=== PATIENT | female | born 1985 | race Caucasian/White ===

== ENCOUNTER 2019-03-05 21:29 | Emergency (ER) | payer MEDICAID, SELFPAY ==
[2019-03-05 21:30] VITALS: BP 132/82; PULSE 105; RESP 22; TEMP 37.3; O2SAT 98; BMI 43.4
--- NOTE | 2019-03-05 21:41 | EKG12_ITS ---
Test Reason : CP Blood Pressure : / mmHG Vent. Rate : 103 BPM Atrial Rate : 103 BPM P-R Int : 150 ms QRS Dur : 090 ms QT Int : 344 ms P-R-T Axes : 022 -01 023 degrees QTc Int : 450 ms Sinus tachycardia Low voltage QRS Borderline ECG Confirmed by JANESSA LUO MD ([id number]), news videotape editor CRISTINA GREEN ([id number]) on 03/08/2019 3:32:32 PM Referred By: TEODORA Confirmed By:JANESSA LUO MD
--- NOTE | 2019-03-05 22:17 | ED.VIS.GEN ---
History of Present Illness Chief Complaint: Chest Pain Narrative: Patient is a 33-year-old female who presents with cough and shortness of breath. She has had about 1-1/2 weeks of productive cough. She complains of mild associated rhinorrhea. She began to feel short of breath last night and also is having sharp right-sided chest pain. This is worse with coughing or inspiration. No fever. No vomiting or diarrhea. No sore throat or headache. She is on Suboxone but denies any other medical history. Past Medical History - Allergies and Home Meds Allergies/Adverse Reactions: Allergies codeine Allergy (Verified 03/05/19 21:30) Rash ibuprofen Allergy (Verified 03/05/19 21:30) Rash naproxen Allergy (Verified 03/05/19 21:30) Hives Penicillins Allergy (Verified 03/05/19 21:30) Hives Primary Care Physician: Merissa Choi MD [Primary Care Provider] - Past Medical History: - - Noncontributory Smoking Status: Current every day smoker Review of Systems All systems negative except as indicated General: Denies: Fever Eyes: Denies: Visual changes - bilaterally ENT: Denies: Bilateral ear pain Cardiovascular: Reports: Chest pain Respiratory: Reports: Dyspnea, Cough Gastrointestinal: Denies: Abdominal pain, Nausea, Vomiting, Diarrhea Musculoskeletal: Denies: Myalgias, Arthralgias Skin: Denies: Rash Neurological: Denies: Headache Allergy: Denies: Uticaria Physical Exam Vital Signs/Narrative: Vital Signs Temp Pulse Resp BP Pulse Ox 03/05/19 21:30 99.1 F 105 H 22 H 132/82 H 98 Inital Vital Signs reviewed: Yes General: Well nourished, Well developed Head: Normocephalic Eyes: EOMI ENT: Moist mucous membranes Neck: Supple Cardiovascular: Regular rate, Regular rhythm Respiratory: No distress, Wheezing. Negative for: Rales, Rhonchi Abdomen: Soft, Nontender Back: Nontender Extremities: Nontender Skin: Normal color Neurological: Alert Psychological: Normal affect Diagnostic/Tx/Re-eval - Medical Decision Making Although on initial vitals she was slightly tachycardic at 103 with a respiratory rate of 22 at the time of my evaluation in the room heart rate was mid 90s with a respiratory rate of 16-18. She is in no distress. She was given albuterol and Atrovent aerosols. Given her wheezing I discussed oral steroids which she refused. Two-view chest x-ray on my review shows no acute process, no focal infiltrate, radiology read pending. Patient is improved after aerosols. She was advised on supportive care. She understands to return for new or worsening symptoms. She was discharged home. ED Disposition - Plan for ED Patient: Disposition: Home or Assisted Living Diagnosis: Bronchitis Instructions: BRONCHITIS with Wheezing (Adult) Referrals: Merissa Choi MD [Primary Care Provider] -
[2019-03-05 22:27] VITALS: PULSE 100; RESP 20
[2019-03-05] MEDS: Ipratropium/Albuterol Sulfate 3 ML AMPUL.NEB INHALATION (22:27)
[2019-03-05] MEDS: Albuterol 2.5 MG/3 ML VIAL.NEB. INHALATION (22:40)
--- NOTE | 2019-03-05 23:32 | RAD_ITS ---
ACR Level 3 findings have been noted. An addendum which confirms receipt of the report will follow. HISTORY: COUGH FOR A COUPLE WEEKSSOB AND CHEST PAIN EXAM: XR Chest 2 Views: COMPARISON: None FINDINGS: # of images incl. paperwork: 2 The junction of the left ventricular apex and the left hemidiaphragm at the apex of the left hemidiaphragm is indistinct. There is some airspace disease perhaps posterior to the left hemidiaphragm on the lateral image.. Heart is not enlarged. No acute osseous pathology perceived. Pulmonary vascularity is distinct. No effusions. RAD/Chest PA and Lateral IMPRESSION: Possible left lower lobe airspace disease such as pneumonia. at 0054 Reported and signed by: Joni Romero MD Electronically Signed: Joni Romero MD at 0:53 EST Tel , Service support ,
--- NOTE | 2019-03-06 02:50 | ED.RN ---
left message with patient at this time to return phone call about possible concern for PNA on chest xray. Dr. Rosas to call in scrip to pharm if patient wanted
== END 2019-03-06 00:51 | disposition home or self-care (01) ==
PROVIDERS: Emergency Provider Emergency Medicine; Family Provider Internal Medicine; PCP Internal Medicine
DX: J40 Bronchitis, not specified as acute or chronic (principal); F17.200 Nicotine dependence, unspecified, uncomplicated
CPT/HCPCS: 71046; 87804; 93005; 94640; 99281; J7030

== ENCOUNTER 2019-03-10 18:56 | Emergency (ER) | payer MEDICAID, SELFPAY ==
[2019-03-10 18:57] VITALS: BP 144/108; PULSE 70; RESP 20; TEMP 36.7; O2SAT 93; BMI 51.0
[2019-03-10 19:46] VITALS: RESP 20
--- NOTE | 2019-03-10 20:27 | CT_ITS ---
STUDY: CT ABDOMEN AND PELVIS WITH CONTRAST REASON FOR EXAM: Female, 33 years old. ABDOMEN PAIN AND DARK TARRY STOOLS,RECENT PNEUMONIA -- HX:HTN-TAKES NO MEDS,CHOLECYSTECTOMY,HYSTERECTOMY RADIATION DOSAGE (If Supplied By Facility): CTDIvol = ( 22.07 ) mGy, DLP = ( 1266.40 ) mGycm TECHNIQUE: Transaxial images were obtained from the dome of the diaphragm to the symphysis pubis without oral contrast. IV 100mL Isovue-300 was administered. Sagittal and coronal images were reconstructed. Individualized dose optimization techniques were used for this CT. COMPARISON: September 14, 2009 FINDINGS: There is mild left lower lobe atelectasis or infiltrate.. The visualized portions of the heart are within normal limits. Normal liver. Gallbladder not visualized which may be consistent with cholecystectomy.. Normal spleen. Normal pancreas. Normal bilateral adrenal glands. Normal right kidney. Normal left kidney. Normal visualized stomach. Normal small intestine. There is diffuse fecal retention seen within the colon. There is mildly increased attenuation of the intraluminal content of the distal descending colon and rectum possibly representing intraluminal hemorrhage or possibly related to ingested radiopaque substance. The appendix is visualized and appears normal. Normal abdominal aorta. Normal inferior vena cava. Normal retroperitoneum. Normal urinary bladder. Uterus not visualized consistent with prior hysterectomy. Normal abdominal wall. Lumbar spine demonstrates degenerative change L5-S1. CT/Abdomen/Pelvis W IV Cont ONLY IMPRESSION: Mild left lower lobe infiltrate. Diffuse fecal retention within the colon. Hyperattenuated intraluminal material within the distal descending colon and rectum possibly representing intraluminal hemorrhage. Radionuclide tagged to red blood cell study would be helpful for further evaluation if clinically indicated Status post cholecystectomy and hysterectomy Electronically Signed: Marcos Delcid MD at 21:59 EST , Service support ,
[2019-03-10 21:17] LABS: Absolute Lymphocyte Count 2.91 X10^3/uL (0.83-4.51); Absolute Neutrophil Count 3.4 X10^3/uL (2.0-7.7); Basophil# 0.04 X10^3/uL; Basophil% 0.5 % (0-1); Eosinophil# 0.66 X10^3/uL; Eosinophils% 8.7 % (0-5); Hematocrit 39.4 % (37-47); Hemoglobin 13.2 g/dL (12.0-15.0); Lymphocyte # 2.91 X10^3/ul (4.0); Lymphocyte % 38.4 % (19-41); Mean Corp Hgb Conc 33.5 g/dL (32-36); Mean Corpuscular Hgb 30.2 pg (27.0-32.0); Mean Corpuscular Volume 90.2 fL (81-99); Mean Platelet Vol. 9.5 fl (6.2-12.0); Monocyte# 0.53 X10^3/uL; NRBC Flagged by Analyzer 0 % (0-5); Neutrophil # 3.42 X10^3/uL (2.7-7.7); Neutrophil % 45.1 % (47-70); Platelet Count 268 K/mm3 (150-450); RBC Distribution Width CV 11.6 % (11.6-14.6); RBC Distribution Width SD 37.8 fl (35.1-43.9); Red Blood Count 4.37 M/mm3 (4.2-5.4); White Blood Count 7.6 K/mm3 (4.4-11.0)
[2019-03-10] MEDS: Ondansetron 4 MG/2 ML Vial IV (21:19)
[2019-03-10] MEDS: 0.9% Normal Saline 1,000 ML 1000 ML IV (21:19)
[2019-03-10 21:33] VITALS: BP 121/95; PULSE 62; RESP 16; TEMP 36.5; O2SAT 94
--- NOTE | 2019-03-10 21:35 | RAD_ITS ---
STUDY: X-RAY CHEST REASON FOR EXAM: Female, 33 years old. patient complains of cough TECHNIQUE: PA and lateral COMPARISON: March 05, 2019 FINDINGS: There is retrocardiac density in left lower lobe which may be consistent with atelectasis or infiltrate.. There is no demonstrated pleural abnormality. Normal size heart. Normal mediastinum and misti. Normal visualized pulmonary arteries. Normal visualized aortic arch and descending thoracic aorta. Normal visualized thoracic spine. Normal visualized ribs, clavicles, and shoulders. There is no demonstrated abnormality of the visualized soft tissue structures of the upper abdomen. There is improved aeration of left lower lobe since prior study. RAD/Chest PA and Lateral IMPRESSION: Persistent mild left lower lobe atelectasis or infiltrate with interval improvement since prior study Electronically Signed: Marcos Delcid MD at 21:53 EST , Service support ,
[2019-03-10 21:42] LABS: ALB/GLOB Ratio 0.7 RATIO (0.9-2.4); AST(SGOT) 60 U/L (15-37); Alanine Aminotransfer ALT/SGPT 35 U/L (13-56); Albumin, Serum 3.2 g/dL (3.2-5.0); Alkaline Phosphatase 81 U/L (45-117); Anion Gap 5 (5-15); BUN 11 mg/dL (7-18); BUN/Creat Ratio 13.6 RATIO (10-20); Calcium,Total 8.7 mg/dL (8.5-10.1); Chloride 110 mmol/L (98-107); Creatinine, Serum 0.81 mg/dL (0.55-1.02); EST Glomerular Filtration Rate 85 mL/min (>60); Est Glom Filt Rate - Afr Amer 103 mL/min (>60); Estimated Creatinine Clearance 73.15 ml/min; Globulin 4.3 g/dL (2.2-4.2); Glucose 89 mg/dL (74-106); Lipase 40 U/L (73-393); Protein, Total 7.5 g/dL (6.4-8.2); Sodium Level 140 mmol/L (136-145)
[2019-03-10 22:07] LABS: Bacteria 0 SEEN /hpf (None Seen); Mucous, Urine 0 SEEN /hpf (<or=2+); Red Blood Cells-Urine 0 SEEN /hpf (0-5); White Blood Cells 0 SEEN /hpf (0-5)
[2019-03-10 22:09] LABS: Color, Urine Yellow (Yellow); Glucose, Dipstick Normal (Normal); Ketone-Dipstick Negative (Negative); Leukocyte Esterase-Dipstick Negative /ul (Negative); Nitrite-Dipstick Negative (Negative); Occult Blood-Urine 10 /ul (Negative); Protein-Dipstick 15 mg/dl (Negative); Specific Gravity, Urine 1.015 (1.002-1.030); Urine Bilirubin Dipstick Negative (Negative); Urine Clarity Sl. Cloudy (Clear); Urine Urobilinogen Normal (Normal)
[2019-03-10] MEDS: Dicyclomine 10 MG Capsule 20 MG PO (22:11)
[2019-03-10 22:26] LABS: Squamous Epithelial Cells - UA 0-5 SEEN /hpf (5-10)
--- NOTE | 2019-03-10 23:03 | ED.DCSUM_ITS ---
History of Present Illness Chief Complaint: Abd Pain Informant: Patient - Abdominal Pain/Flank Pain Onset: Days Context: Gradual Onset Timing: Intermittent, Waxes and wanes Quality: Aching Narrative: Patient is a 33-year-old female with history of opioid abuse currently on Suboxone as well as a recent diagnosis of pneumonia presenting with abdominal pain. Patient states she has had diffuse cramping abdominal pain for the past week. States the pain is mostly in her epigastric region but also radiates to her back. Is becoming more persistent and worsening. Patient patient has had associated vomiting and nausea. She notes he is also been vomiting after taking her doxycycline. She was prescribed doxycycline for pneumonia. She did is have some pressure with urination but denies any dysuria. Patient denies any abnormal vaginal bleeding or discharge. She does have a history of a partial hysterectomy. Patient has taken Pepto-Bismol in the past few weeks. She notes that for the past few days she has had intermittent black stools. She was concerned it might be blood which is why she came into the emergency room. Denies any associated fever but does report chills. She thinks her cough might be slowly improving. Past Medical History - Allergies and Home Meds Allergies/Adverse Reactions: Allergies codeine Allergy (Verified 03/10/19 19:49) Rash ibuprofen Allergy (Verified 03/10/19 19:49) Rash naproxen Allergy (Verified 03/10/19 19:49) Hives Penicillins Allergy (Verified 03/10/19 19:49) Hives Primary Care Physician: Merissa Choi MD [Primary Care Provider] - Past Medical History: - - History of opioid addiction, GERD Surgical History: - - C section x5, partial hysterectomy, cholecystectomy Lives: Spouse/ Significant Other Smoking Status: Current every day smoker Review of Systems General: Reports: Chills, Malaise. Denies: Fever, Sweats Eyes: Denies: Visual changes - bilaterally, Diplopia ENT: Denies: Rhinorrhea, Sore throat Cardiovascular: Denies: Chest pain, Palpitations Respiratory: Reports: Cough. Denies: Dyspnea, Dyspnea on exertion Gastrointestinal: Reports: Abdominal pain, Nausea, Constipation, Melena. Denies: Vomiting, Diarrhea, Hematochezia Genitourinary: Denies: Dysuria, Hematuria, Frequency Musculoskeletal: Denies: Back pain, Extremity Pain Skin: Denies: Rash, Wounds Neurological: Denies: Headache, Weakness, Numbness Physical Exam Vital Signs/Narrative: Vital Signs Temp Pulse Resp BP Pulse Ox 03/10/19 21:33 97.7 F L 62 16 121/95 H 94 03/10/19 19:46 20 H Inital Vital Signs reviewed: Yes General: Well nourished, Well developed, Obese, No Acute Distress Head: Normocephalic, Atraumatic Eyes: Perrl, EOMI ENT: Moist mucous membranes, No rhinorrhea Neck: Supple, Nontender Cardiovascular: Regular rate, Regular rhythm, No murmurs Respiratory: No distress, CTA bilaterally, Chest nontender Abdomen: Soft, Nontender, Nondistended, Normal bowel sounds. Negative for: Guarding, Rebound tenderness Rectal: Guaiac negative, Nontender Back: Nontender, Normal Inspection. Negative for: CVA tenderness Extremities: Nontender, No edema Skin: Normal color, No rash Neurological: Alert, Oriented x3, Cranial nerves II-XII grossly intact, Normal Strength, Normal Sensation Psychological: Normal affect, Normal Mood Diagnostic/Tx/Re-eval Clinical Impression(s) from Imaging Studies Abdomen/Pelvis CT 03/10/19 20:27 IMPRESSION: Mild left lower lobe infiltrate. Diffuse fecal retention within the colon. Hyperattenuated intraluminal material within the distal descending colon and rectum possibly representing intraluminal hemorrhage. Radionuclide tagged to red blood cell study would be helpful for further evaluation if clinically indicated Status post cholecystectomy and hysterectomy Electronically Signed: Marcos Delcid MD at 21:59 EST , Service support , Chest X-Ray 03/10/19 21:35 IMPRESSION: Persistent mild left lower lobe atelectasis or infiltrate with interval improvement since prior study Electronically Signed: Marcos Delcid MD at 21:53 EST , Service support , Laboratory Data 03/10/19 03/10/19 03/10/19 21:05 21:05 22:05 WBC 7.6 RBC 4.37 Hgb 13.2 Hct 39.4 MCV 90.2 MCH 30.2 MCHC 33.5 RDW Std Deviation 37.8 RDW Coeff of Lizette 11.6 Plt Count 268 MPV 9.5 Immature Gran % (Auto) 0.300 Neut % (Auto) 45.1 L Lymph % (Auto) 38.4 [place] % (Auto) 7.0 Eos % (Auto) 8.7 H Baso % (Auto) 0.5 Absolute Neuts (auto) 3.4 Absolute Lymphs (auto) 2.91 Nucleated RBC % 0 Sodium 140 Potassium 5.0 Chloride 110 H Carbon Dioxide 25.0 Anion Gap 5 BUN 11 Creatinine 0.81 Estim Creat Clear Calc 73.15 Est GFR (MDRD) Af Amer 103 Est GFR (MDRD) Non-Af 85 BUN/Creatinine Ratio 13.6 Glucose 89 Calcium 8.7 Total Bilirubin 0.30 AST 60 H ALT 35 Alkaline Phosphatase 81 Total Protein 7.5 Albumin 3.2 Globulin 4.3 H Albumin/Globulin Ratio 0.7 L Lipase 40 L Urine Color Yellow Urine Clarity Sl. Cloudy Urine pH 5.0 Ur Specific [place] 1.015 Urine Protein 15 H Urine Glucose (UA) Normal Urine Ketones Negative Urine Occult Blood 10 H Urine Nitrite Negative Urine Bilirubin Negative Urine Urobilinogen Normal Ur Leukocyte Esterase Negative Urine RBC 0 SEEN Urine WBC 0 SEEN Ur Squamous Epith Cells 0-5 SEEN Urine Bacteria 0 SEEN Urine Mucus 0 SEEN - Medical Decision Making Patient is evaluated for abdominal pain. She is also having black stools. Patient is guaiac negative. Patient has been taking Pepto-Bismol which might be contributing to her black stools. Her hemoglobin is normal. Her white blood cell count is normal. Patient has been having muscle episodes of vomiting and does have multiple abdominal surgeries. CT of abdomen and pelvis is obtained to rule out small bowel obstruction. This does not show any acute process. There is questionable blood versus contrast material in the colon. I suspect this is the bismuth from Pepto-Bismol. Patient does not have signs of a GI bleed based on physical exam. CMP is grossly normal with only minimally elevated AST. Her urinalysis does not show signs of infection. Patient's chest x-ray does continue to show an infiltrate however it does seem to be resolving. Patient is not hypoxic or tachypneic. Patient is counseled to continue taking doxycycline. She is prescribed Zofran to help with the nausea associated with the medication. In the ER patient is given IV fluids, Bentyl and Zofran. She does have improvement of her symptoms. I suspect her abdominal pain might be associated to constipation/or cramping of the intestines. She will be started on Bentyl for this. She is also given a prescription for MiraLAX. Patient does admit to having problems with constipation secondary to her Suboxone use. Patient is counseled on signs and symptoms requiring return to the emergency room. Patient verbalizes agreement and understand this plan. Patient discharged home in stable and improved condition. ED Disposition - Plan for ED Patient: Disposition: Home or Assisted Living Instructions: ABDOMINAL PAIN, Unknown Cause, (Female), CONSTIPATION (Adult) Prescriptions: Dicyclomine HCl [Bentyl] 20 mg PO TIDAC #20 cap Prescription Printed Polyethylene Glycol 3350 [Miralax] 17 gm PO DAILY 7 Days #7 packet Prescription Printed Ondansetron [Zofran Odt] 4 mg PO Q8H PRN PRN #10 tab PRN Reason: Nausea Prescription Printed Referrals: Merissa Choi MD [Primary Care Provider] - Additional Instructions: Your work-up was largely negative today. I suspect your pain is from constipation. The black stools are probably from the Pepto-Bismol you took. Please make sure you drink plenty fluids. Return the emergency room if you have worsening symptoms. Please follow-up with your primary care doctor.
[2019-03-10 23:15] VITALS: BP 121/95; PULSE 62; RESP 16; O2SAT 94
== END 2019-03-10 23:17 | disposition home or self-care (01) ==
PROVIDERS: Emergency Provider Emergency Medicine; Family Provider Internal Medicine; PCP Internal Medicine
DX: R10.9 Unspecified abdominal pain (principal); R11.2 Nausea with vomiting, unspecified; E66.9 Obesity, unspecified; Z68.43 Body mass index [BMI] 50.0-59.9, adult; F11.10 Opioid abuse, uncomplicated; F17.200 Nicotine dependence, unspecified, uncomplicated
CPT/HCPCS: 71046; 74177; 80053; 81001; 82274; 83690; 85025; 96361; 96374; 99284; J7030; Q9967; A4216; J2405

== ENCOUNTER 2019-03-16 08:13 | Inpatient (IN) | payer MEDICAID, SELFPAY ==
[2019-03-16] VITALS (13 sets, daily range): BP systolic 100–150; BP diastolic 53–102; PULSE 66–101; RESP 18–24; TEMP 36.8–37.5; O2SAT 94–98; BMI 43.4; BMI 50.8
--- NOTE | 2019-03-16 08:30 | ED.VISSUMM ---
- ER Visit Summary Date of Service: 03/16/19 Chief Complaint: [Right rib pain and cough] History of Present Illness: The patient is a 33 F [presents to the emergency department with complaint of cough that she has had since just after [place]. Patient says she was diagnosed with pneumonia and was treated with doxycycline. Patient was seen back in the emergency department March 10 and had complaint of abdominal pain and had a chest x-ray and CT scan of the abdomen pelvis which at that time showed small left lower lobe pneumonia that seem to be improving from prior chest x-ray. CT of the abdomen pelvis was unremarkable. Patient states that she is continuing to cough and bringing up small amount of phlegm. She denies any fevers. Yesterday she coughed and developed severe pain in her right chest. Patient was worried about the pain in her right chest and returns for evaluation. Patient currently on Suboxone and has been using ibuprofen for the discomfort. Patient states she has been clean of any drugs for over 3 years. Patient otherwise has no medical history.] Physical Examination: [Blood pressure 126/53, temp 99 1, heart rate 101, Respess 22, pulse ox 95% on room air. HEENT-PERRLA, EOMI. Cranial nerves II through XII grossly intact. TMs clear. Mucous membranes moist. No adenopathy. Cardiovascular-regular rate and rhythm without murmur or ectopy Lungs-good breath sounds bilaterally. Patient has coarse rhonchi bilaterally. Patient has some very faint expiratory wheezes. Mild tachypnea due to the fact the patient splints a little bit because of the pain in her right chest. No accessory muscle use or retractions. No conversational dyspnea. Abdomen-normoactive bowel sounds, soft, nontender, no rebound or rigidity, no peritoneal signs. Extremities-intact ?4, normal range of motion, normal pulses, atraumatic] Test Results: [] Emergency Department Course and Treatment: [] Treatment Plan: [] Disposition: [] Impression: [] This note was generated with [employer] dictation software. It may contain incorrect words, spelling, and punctuation that were not noted in review of the chart prior to signing ED Disposition - Plan for ED Patient: Referrals: Merissa Choi MD [Primary Care Provider] -
--- NOTE | 2019-03-16 08:38 | RAD_ITS ---
STUDY: X-RAY CHEST REASON FOR EXAM: Female, 33 years old. SOB, COUGH AND CONGESTION FOR A FEW WEEKS NOW. PATIENT IS NOW HAVING RIGHT CHEST PAINS BELOW BREAST AND RADIATING TO THE RIGHT SINCE LAST NIGHT. PATIENT STATES SHE WAS DIAGNOSED WITH PNEUMONIA. TECHNIQUE: AP and lateral views of the chest. COMPARISON: Comparison is made with prior examination dated March 10, 2019. FINDINGS: There is evidence of right middle lobe infiltrate as well as patchy right lower lobe infiltrate. Follow-up is recommended. There is no demonstrated pleural abnormality. Normal size heart. Normal mediastinum and misti. Normal visualized pulmonary arteries. Normal visualized aortic arch and descending thoracic aorta. Normal visualized thoracic spine. Normal visualized ribs, clavicles, and shoulders. There is no demonstrated abnormality of the visualized soft tissue structures of the upper abdomen. RAD/Chest PA and Lateral IMPRESSION: Right middle lobe and right lower lobe infiltrates. Follow-up is recommended. Electronically Signed: Seferino Lemus, at 8:59 EST , Service support ,
[2019-03-16 09:15] LABS: Absolute Lymphocyte Count 1.59 X10^3/uL (0.83-4.51); Absolute Neutrophil Count 9.5 X10^3/uL (2.0-7.7); Basophil# 0.04 X10^3/uL; Basophil% 0.3 % (0-1); Eosinophils% 4.1 % (0-5); Hematocrit 39.6 % (37-47); Hemoglobin 13.1 g/dL (12.0-15.0); Lymphocyte # 1.59 X10^3/ul (4.0); Mean Corp Hgb Conc 33.1 g/dL (32-36); Mean Corpuscular Hgb 29.7 pg (27.0-32.0); Mean Corpuscular Volume 89.8 fL (81-99); Mean Platelet Vol. 9.5 fl (6.2-12.0); Monocyte# 0.53 X10^3/uL; Monocyte% 4.3 % (0-10); NRBC Flagged by Analyzer 0 % (0-5); Neutrophil # 9.53 X10^3/uL (2.7-7.7); Platelet Count 251 K/mm3 (150-450); RBC Distribution Width CV 12.1 % (11.6-14.6); RBC Distribution Width SD 39.4 fl (35.1-43.9); Red Blood Count 4.41 M/mm3 (4.2-5.4); White Blood Count 12.2 K/mm3 (4.4-11.0)
[2019-03-16] MEDS: 0.9% Normal Saline 1,000 ML 150 ML IV ×3 (09:26→23:20)
[2019-03-16] MEDS: levoFLOXacin IV 750 MG/150 ML BAG 100 MG IV (09:26)
[2019-03-16 09:30] LABS: ALB/GLOB Ratio 0.9 RATIO (0.9-2.4); AST(SGOT) 19 U/L (15-37); Alanine Aminotransfer ALT/SGPT 28 U/L (13-56); Albumin, Serum 3.3 g/dL (3.2-5.0); Alkaline Phosphatase 85 U/L (45-117); BUN 10 mg/dL (7-18); BUN/Creat Ratio 13.4 RATIO (10-20); Calcium,Total 8.2 mg/dL (8.5-10.1); Creatinine, Serum 0.75 mg/dL (0.55-1.02); EST Glomerular Filtration Rate 94 mL/min (>60); Est Glom Filt Rate - Afr Amer 114 mL/min (>60); Globulin 3.8 g/dL (2.2-4.2); Glucose 104 mg/dL (74-106); Potassium 3.6 mmol/L (3.5-5.1); Protein, Total 7.1 g/dL (6.4-8.2); Sodium Level 139 mmol/L (136-145)
[2019-03-16 09:31] LABS: Anion Gap 7 (5-15); Chloride 105 mmol/L (98-107)
[2019-03-16 09:32] LABS: D-Dimer Quantitative (DVT/PE) 0.69 FEU/ug/m (0.27-0.49)
--- NOTE | 2019-03-16 09:33 | ED.RN ---
d-dimer 0.69. aware.
--- NOTE | 2019-03-16 09:38 | CT_ITS ---
STUDY: CTA CHEST REASON FOR EXAM: Female, 33 years old. SOB. COUGH. PATIENT CURRENTLY TREATED FOR PNEUMONIA RADIATION DOSAGE (If Supplied By Facility): CTDIvol = ( 19.74 ) mGy, DLP = ( 670.22 ) mGycm TECHNIQUE: The examination was performed with the intravenous administration of 100 ML ISOVUE 370. Post-processing of the angiographic images was performed, with multiplanar reformation and 3D reconstruction. Individualized dose optimization techniques were used for this CT. COMPARISON: None. FINDINGS: Small benign-appearing bilateral axillary lymph nodes. Normal enhancement of the main pulmonary artery and right and left pulmonary arteries. Normal enhancement of the bilateral peripheral pulmonary arteries. There is no demonstrated pulmonary embolism. Normal thoracic aorta and visualized great vessels. There is no demonstrated aortic dissection. Normal heart and pericardium. There are visualized mediastinal lymph nodes, which are within normal size limits, and with normal morphology. Normal hilar regions. Normal visualized trachea and bronchi. The lungs are well expanded. Bibasilar patchy infiltrates more prominent in the posterior medial segment of the left lower lobe. Normal pleura. Normal chest wall structures. Normal osseous structures. Normal visualized upper abdomen. CT/CTA Chest W/WO Contrast IMPRESSION: Patchy bibasilar pulmonary infiltrates worse in the posterior medial segment of the left lower lobe. Electronically Signed: Seferino Lemus, at 10:35 EST , Service support ,
[2019-03-16] MEDS: Ipratropium/Albuterol Sulfate 3 ML AMPUL.NEB INHALATION (10:27)
--- NOTE | 2019-03-16 10:42 | PCM.HP.STD ---
History of Present Illness Date of Admission: 03/16/19 Chief Complaint: general malaise, shortness of breath The patient is a 33 year old F with a past medical history of substance abuse. She was admitted through the ED on 03/16/2019 with a complaint of generalized malaise and shortness of breath. Patient had been treated for pneumonia a few days prior to admission and states he completed a 7-day course a few days ago. At that time, she thought she had an upper respiratory infection but she was told that she had pneumonia by her PCP. However symptoms have persisted and she now has a worsening cough productive of greenish sputum. She denies any fever but admits to chills and worsening shortness of breath as well as pleuritic chest pain. Review systems otherwise negative. She denied any nausea vomiting or diarrhea. Review of systems otherwise negative. On admission in the ED, vitals were significant for temperature of 99.1 with a heart rate of 101 and respiratory of 22. She was saturating at 95% on room air. CBC showed white cell count of 12.2 but was otherwise unremarkable. BMP was unremarkable. EKG or troponins were checked in the ED. However subsequently patient started complaining of chest pain which arrived on the floor so an initial EKG was done which showed normal sinus rhythm with no acute ST changes. Troponin series was also ordered. Chest x-ray showed right middle lobe and right lower lobe infiltrates. CTA of the chest showed patchy bibasilar pulmonary infiltrates worse in the posterior middle segment of the left lobe is negative for any PE. She has been admitted to be managed for community-acquired pneumonia, with failed outpatient therapy. Past Medical History Allergies No Known Allergies Allergy (Verified 03/16/19 08:17) Home Medications: Ambulatory Orders Medication Instructions Recorded Buprenorphine HCl/Naloxone HCl 1 tab PO DAILY 03/10/19 [Zubsolv 8.6-2.1 mg Tablet Sl] Famotidine 20 mg PO DAILY 03/10/19 Gabapentin 800 mg PO BID 03/10/19 Dicyclomine HCl [Bentyl] 20 mg PO TIDAC 03/16/19 Polyethylene Glycol 3350 [Miralax] 17 gm PO DAILY 03/16/19 Surgical History: - - C section x5, partial hysterectomy, cholecystectomy Psychiatric History: No pertinent psych hx ASSEMBLY LEADER History: No pertinent ASSEMBLY LEADER history Lives: Spouse/ Significant Other Smoking Status: Former smoker Tobacco Use: Cigarettes Alcohol: None Drugs: None - quit using heroin 3 years ago - *Family History Maternal History Items: No pertinent history Paternal History Items: Diabetes Review of Systems Constitutional: Reports: Chills, Malaise, Weakness, Fatigue. Denies: Anorexia, Fever Eyes: Denies: Blurred vision HEENT: Denies: Head Aches, Sinus Congestion, Sinus Drainage Cardiovascular: Reports: Chest Pain. Denies: Chest Tightness, Heaviness, Light Headedness, Orthopnea, Palpitations Respiratory: Reports: Cough, Pleuritic Pain, Shortness of Breath, Shortness of breath at rest, Shortness of breath upon exertion, Sputum production. Denies: Wheezing Gastrointestinal: Denies: Abdominal Pain, Nausea, Vomiting Genitourinary: Denies: Dysuria Musculoskeletal: Denies: Joint Pain, Joint Tenderness Skin: Denies: Rash, Wounds Neurological: Denies: Numbness, Tingling, Focal weakness Psychiatric: Denies: Anxiety, Depression, Homicidal Ideations, Suicidal Ideations Hematologic/ Lymphatic: Denies: Easy Bruising, Easy Bleeding VTE Information - Inpt Only VTE Present on Admission: No VTE Pharm Prophylaxis ordered?: Yes - Physical Exam Vitals/I&O's: Vital Signs Temp Pulse Resp BP Pulse Ox 99.1 F 95 24 H 150/102 H 96 03/16/19 10:32 03/16/19 10:32 03/16/19 10:32 03/16/19 10:32 03/16/19 10:32 Oxygen Delivery Method Room Air Weight: 230 lb Body Mass Index (BMI) 43.4 General: Alert, Oriented x3, Cooperative, No apparent distress, Lethargic, - - super morbid obesity HEENT: Atraumatic, PERRLA, EOMI, Normocephalic Oral: Dry Mucosa Neck: Supple, No JVD, Negative Carotid Bruits Lungs: Tachypneic, - - decreased breath sounds bibasally. Coarse crackles in mid and lower lung calle. Cardiovascular: Regular Rhythm, Normal S1, Normal S2, No murmurs, Tachycardic Abdomen: Bowel Sounds Present, Soft, Non Tender, Non-Distended, No Hepato-splenomegaly, Obese Extremities: No clubbing, No cyanosis, No edema, Capillary Refill Less than 3 Seconds Skin: No rashes, No breakdown Musculoskeletal: No Tenderness to Palpation of Joints or Extremities Lymphatic: No Cervical, Supraclavicular, or Inguinal Adenopathy Neurological: Cranial nerves II-XII grossly intact, Neuro grossly intact, Motor Exam 5/5 strength throughout Psych/Mental Status: Normal Affect, Appropriate, Alert and oriented to time, place, person, mood and affect Laboratory Results 03/16/19 09:04: WBC 12.2 H, RBC 4.41, Hgb 13.1, Hct 39.6, MCV 89.8, MCH 29.7, MCHC 33.1, RDW Std Deviation 39.4, RDW Coeff of Lizette 12.1, Plt Count 251, MPV 9.5, Immature Gran % (Auto) 0.300, Neut % (Auto) 78.0 H, Lymph % (Auto) 13.0 L, Mineral % (Auto) 4.3, Eos % (Auto) 4.1, Baso % (Auto) 0.3, Absolute Neuts (auto) 9.5 H, Absolute Lymphs (auto) 1.59, Nucleated RBC % 0 03/16/19 09:04: WBC Cancelled, Corrected WBC Cancelled, RBC Cancelled, Hgb Cancelled, Hct Cancelled, MCV Cancelled, MCH Cancelled, MCHC Cancelled, RDW Std Deviation Cancelled, RDW Coeff of Lizette Cancelled, Plt Count Cancelled, MPV Cancelled, Immature Gran % (Auto) Cancelled, Neut % (Auto) Cancelled, Lymph % (Auto) Cancelled, Mineral % (Auto) Cancelled, Eos % (Auto) Cancelled, Baso % (Auto) Cancelled, Absolute Neuts (auto) Cancelled, Absolute Lymphs (auto) Cancelled, Total Counted Cancelled, Neutrophils % (Manual) Cancelled, Band Neutrophils % Cancelled, Lymphocytes % (Manual) Cancelled, Monocytes % (Manual) Cancelled, Eosinophils % (Manual) Cancelled, Basophils % (Manual) Cancelled, Metamyelocytes % Cancelled, Myelocytes % Cancelled, Promyelocytes % Cancelled, Blast Cells % Cancelled, Plasma Cell % (Manual) Cancelled, Other Cells % Cancelled, Nucleated RBC % Cancelled, Nucleated RBCs/100 WBC Cancelled, Differential Comment Cancelled, Diff Path Review Cancelled, Hypersegmented Neuts Cancelled, Atypical Lymphocytes Cancelled, Reactive Lymphocytes Cancelled, Smudge Cells Cancelled, Toxic Granulation Cancelled, Toxic Vacuolation Cancelled, Dohle Bodies Cancelled, Jami Rods Cancelled, Platelet Estimate Cancelled, Plt Morphology Comment Cancelled, RBC Morphology Cancelled, Polychromasia Cancelled, Hypochromasia Cancelled, Poikilocytosis Cancelled, Basophilic Stippling Cancelled, Anisocytosis Cancelled, Microcytosis Cancelled, Macrocytosis Cancelled, Spherocytes Cancelled, Sickle Cells Cancelled, Target Cells Cancelled, Tear Drop Cells Cancelled, Ovalocytes Cancelled, Stomatocytes Cancelled, Canales-Emma Bodies Cancelled, Edison Cells Cancelled, Bite Cells Cancelled, Crenated Cell Cancelled, Acanthocytes (Spur) Cancelled, Rouleaux Cancelled, Schistocytes Cancelled 03/16/19 09:04: Sodium 139, Potassium 3.6, Chloride 105, Carbon Dioxide 27.0, Anion Gap 7, BUN 10, Creatinine 0.75, Estim Creat Clear Calc 79.00, Est GFR (MDRD) Af Amer 114, Est GFR (MDRD) Non-Af 94, BUN/Creatinine Ratio 13.4, Glucose 104, Calcium 8.2 L, Total Bilirubin 0.60, AST 19, ALT 28, Alkaline Phosphatase 85, Total Protein 7.1, Albumin 3.3, Globulin 3.8, Albumin/Globulin Ratio 0.9 03/16/19 09:04: Lactic Acid 1.0 03/16/19 09:04: D-Dimer Quant (PE/DVT) 0.69 H* Diagnostic Data Chest X-Ray 03/16/19 08:38 IMPRESSION: Right middle lobe and right lower lobe infiltrates. Follow-up is recommended. Electronically Signed: Seferino Lemus, at 8:59 EST , Service support , Chest CTA 03/16/19 09:38 IMPRESSION: Patchy bibasilar pulmonary infiltrates worse in the posterior medial segment of the left lower lobe. Electronically Signed: Seferino Lemus, at 10:35 EST , Service support , Current Medications Sodium Chloride () 1,000 mls @ 150 mls/hr IV .[id number] [facility] Last Admin: 03/16/19 09:26 Dose: 150 mls/hr Documented by: Assessment/Plan 33 y/o admitted with a complaint of cough, general malaise adn shortness of breath 1. Sepsis due to Community acquired pneumonia failed outpatient therapy with PO doxycycline. has nausea and vomiting and general malaise SIRS criteria (3/4)- tachypnea, tachycardia and leucocytosis CT of chest showed patchy bibasilar pulmonary infiltrates worse in the posterior medial segment of the left lower lobe. will check lactic acid admit to PCU hydrate with IVF NS @ 150cc/hr IV zofran prn Check sputum culture and blood cultures. Urine for strep and Legionella antigens. Check respiratory panel if it is available. Tylenol as needed for pain. Titrate oxygen to maintain saturation above 90%. 2. Community-acquired pneumonia: Management as under 1. 3. Chest pain likely pleuritic Initial EKG showed no acute ST changes. Troponins are pending. Sublingual nitroglycerin as needed. Tylenol as needed for pain. 4. History of opiate abuse: Has been clean for 3 years. On Suboxone. 5. Super morbid obesity: BMI is over 50. Complicates acute care, expected recovery and prognosis. DVT prophylaxis: Lovenox Code Visit Inpatient E&M: 47703 Init Hosp L3
[2019-03-16] MEDS: Ketorolac 30 MG/ML Syringe IV ×3 (10:49→21:13)
--- NOTE | 2019-03-16 12:21 | EKG12_ITS ---
Test Reason : CP Blood Pressure : / mmHG Vent. Rate : 082 BPM Atrial Rate : 082 BPM P-R Int : 146 ms QRS Dur : 090 ms QT Int : 376 ms P-R-T Axes : 063 009 039 degrees QTc Int : 439 ms Normal sinus rhythm Low voltage QRS Borderline ECG When compared with ECG of 05-MAR-2019 21:41, No significant change was found Confirmed by EDYTA RODRIGUEZ, RICHELLE ([id number]), order editor JOY GREGORY ([id number]) on 03/18/2019 1:28:09 PM Referred By: Apurva Pinzon Confirmed By:OTONIEL LAN MD
[2019-03-16] MEDS: Gabapentin 800 MG Tablet PO (17:23)
[2019-03-16] MEDS: Dicyclomine 10 MG Capsule 20 MG PO (17:23)
[2019-03-16] MEDS: Ondansetron 4 MG/2 ML Vial IV (18:09)
[2019-03-16] MEDS: 0.9% Saline Lock 10 ML Syringe IV ×2 (18:10→21:14)
[2019-03-16] MEDS: Acetaminophen 325 MG Tablet 650 MG PO (20:00)
[2019-03-16] MEDS: Albuterol 2.5 MG/3 ML VIAL.NEB. INHALATION (20:16)
[2019-03-17] VITALS (13 sets, daily range): BP systolic 108–135; BP diastolic 67–92; PULSE 61–93; RESP 16–18; TEMP 36.7–37; O2SAT 94–97
[2019-03-17] MEDS: Ketorolac 30 MG/ML Syringe IV ×3 (05:20→18:47)
[2019-03-17] MEDS: 0.9% Saline Lock 10 ML Syringe IV ×3 (05:22→18:47)
[2019-03-17] MEDS: Dicyclomine 10 MG Capsule 20 MG PO ×2 (06:05→16:25)
[2019-03-17 06:10] LABS: Absolute Lymphocyte Count 2.13 X10^3/uL (0.83-4.51); Absolute Neutrophil Count 3.6 X10^3/uL (2.0-7.7); Basophil# 0.03 X10^3/uL; Basophil% 0.5 % (0-1); Eosinophils% 6.1 % (0-5); Hematocrit 33.6 % (37-47); Hemoglobin 10.9 g/dL (12.0-15.0); Lymphocyte # 2.13 X10^3/ul (4.0); Lymphocyte % 32.6 % (19-41); Mean Corp Hgb Conc 32.4 g/dL (32-36); Mean Corpuscular Hgb 29.9 pg (27.0-32.0); Mean Corpuscular Volume 92.1 fL (81-99); Mean Platelet Vol. 9.6 fl (6.2-12.0); Monocyte% 6.1 % (0-10); NRBC Flagged by Analyzer 0 % (0-5); Neutrophil # 3.56 X10^3/uL (2.7-7.7); Neutrophil % 54.5 % (47-70); Platelet Count 184 K/mm3 (150-450); RBC Distribution Width CV 12.1 % (11.6-14.6); RBC Distribution Width SD 40.3 fl (35.1-43.9); Red Blood Count 3.65 M/mm3 (4.2-5.4); White Blood Count 6.5 K/mm3 (4.4-11.0)
[2019-03-17 06:26] LABS: Anion Gap 4 (5-15); BUN 9 mg/dL (7-18); Chloride 112 mmol/L (98-107); EST Glomerular Filtration Rate 121 mL/min (>60); Est Glom Filt Rate - Afr Amer 146 mL/min (>60); Estimated Creatinine Clearance 98.75 ml/min; Glucose 85 mg/dL (74-106); Potassium 4.1 mmol/L (3.5-5.1); Sodium Level 141 mmol/L (136-145)
[2019-03-17] MEDS: Famotidine 20 MG Tablet PO (08:26)
[2019-03-17] MEDS: Gabapentin 800 MG Tablet PO ×3 (08:27→21:57)
[2019-03-17] MEDS: Enoxaparin 40 MG/0.4 ML Syringe SC (08:27)
[2019-03-17] MEDS: BUPRENORPHINE HCL 8 MG TAB.SUBL 12 MG SL (08:38)
[2019-03-17] MEDS: Albuterol 2.5 MG/3 ML VIAL.NEB. INHALATION ×2 (09:49→19:00)
--- NOTE | 2019-03-17 11:33 | CASEMGMT ---
RN FABIAN G[employer] DIRECTOR [employer] CH[employer] CM to room to meet with patient for initial transition planning/care coordination assessment. NELDA PERALTA introduced self and role at [facility]. Pt voices understanding and consents to assessment at this time. Pt resting in bed/ at bedside. Pt is A/O at this time and answers all questions appropriately. Care providers, pharmacy, and demographics verified at this time. PCP: Dr Choi Specialists: [facility] Preferred Pharmacy: [facility] Insurance: [employer] Prescription Benefit: Yes Living Will/HPOA: States does not have LW or HCPOA . Interested in more information and would like to talk with SW at this time to complete paperwork. Provided information on advanced directives and given Social Service rac card with number to call to make an appt as an out-pt if SW is unable to meet with her during this admission. She voices understanding. LNOK: Living Arrangements: Lives in [facility] with her and 5 children. Independent. Transportation: Pt states drives self and states no transportation concerns at this time. DME: Denies using any DME and denies needs. HHC/SNF: No history of either. No needs identified. Pt wishes to return home and states has no concerns with going home at time of discharge. CM to follow for any further discharge planning/needs. Pt/ voice no further concerns/needs at this time. Advised them to ask for CM if any further questions/concerns/needs arise. They voice understanding. PLAN: Home Marina EDDY RN, CM
[2019-03-17] MEDS: Ondansetron 4 MG/2 ML Vial IV (12:03)
--- NOTE | 2019-03-17 12:24 | PN_ITS ---
Subjective: Patient seen and examined. Shortness of breath is improved today and she feels much better. Review of systems otherwise negative. Labs and vitals reviewed. WBC is down to 6.5 today. Tachypnea and tachycardia have resolved. Vitals/I&O's: Vital Signs Temp Pulse Resp BP Pulse Ox 98.2 F 79 18 127/91 H 97 03/17/19 11:59 03/17/19 11:59 03/17/19 11:59 03/17/19 11:59 03/17/19 11:59 Oxygen Delivery Method Room Air Weight: 268 lb 15.423 oz Body Mass Index (BMI) 50.8 Intake and Output for Last 24 Hours 03/15/19 03/16/19 03/17/19 23:59 23:59 23:59 Intake Total 2512.5 / 3012.5 2145.00 / 2145.00 Balance 2512.5 / 3012.5 2145.00 / 2145.00 General: Alert, Oriented x3, Cooperative, No apparent distress, Lethargic, - - super morbid obesity HEENT: Atraumatic, PERRLA, EOMI, Normocephalic Oral: Dry Mucosa Neck: Supple, No JVD, Negative Carotid Bruits Lungs: Mildly diminished breath sounds bilaterally. No wheezes or crackles. Cardiovascular: Regular Rhythm, Normal S1, Normal S2, No murmurs, Tachycardic Abdomen: Bowel Sounds Present, Soft, Non Tender, Non-Distended, No Hepato- splenomegaly, Obese Extremities: No clubbing, No cyanosis, No edema, Capillary Refill Less than 3 Seconds Skin: No rashes, No breakdown Musculoskeletal: No Tenderness to Palpation of Joints or Extremities Lymphatic: No Cervical, Supraclavicular, or Inguinal Adenopathy Neurological: Cranial nerves II-XII grossly intact, Neuro grossly intact, Motor Exam 5/5 strength throughout Psych/Mental Status: Normal Affect, Appropriate, Alert and oriented to time, place, person, mood and affect Microbiology Past 72 Hours 03/16/19 18:12 Sputum, Expectorated/Coughed Gram Stain - Final 03/16/19 16:10 Urine, Clean Catch Streptococcus pneumoniae Antigen (M - Aruna l 03/16/19 16:10 Urine, Clean Catch Legionella Antigen - Final Laboratory Results 03/16/19 14:25: Troponin I < 0.015 03/16/19 15:10: Lactic Acid 1.0 03/16/19 17:05: Troponin I < 0.015 03/16/19 19:59: Troponin I < 0.015 03/17/19 05:25: WBC 6.5, RBC 3.65 L, Hgb 10.9 L, Hct 33.6 L, MCV 92.1, MCH 29.9, MCHC 32.4, RDW Std Deviation 40.3, RDW Coeff of Lizette 12.1, Plt Count 184, MPV 9.6, Immature Gran % (Auto) 0.200, Neut % (Auto) 54.5, Lymph % (Auto) 32.6, [place] % (Auto) 6.1, Eos % (Auto) 6.1 H, Baso % (Auto) 0.5, Absolute Neuts (auto) 3.6, Absolute Lymphs (auto) 2.13, Nucleated RBC % 0 03/17/19 05:25: Sodium 141, Potassium 4.1, Chloride 112 H, Carbon Dioxide 25.0, Anion Gap 4 L, BUN 9, Creatinine 0.60, Estim Creat Clear Calc 98.75, Est GFR (MDRD) Af Amer 146, Est GFR (MDRD) Non-Af 121, BUN/Creatinine Ratio 15.0, Glucose 85, Calcium 8.0 L Diagnostic Data Chest X-Ray 03/16/19 08:38 IMPRESSION: Right middle lobe and right lower lobe infiltrates. Follow-up is recommended. Electronically Signed: Seferino Lemus, at 8:59 EST , Service support , Chest CTA 03/16/19 09:38 IMPRESSION: Patchy bibasilar pulmonary infiltrates worse in the posterior medial segment of the left lower lobe. Electronically Signed: Seferino Lemus, at 10:35 EST , Service support , Current Medications Acetaminophen (Tylenol) 650 mg PO Q6H PRN PRN PRN Reason: Pain Score 1-3/Temp > 100.7 F Last Admin: 03/16/19 20:00 Dose: 650 mg Documented by: Albuterol Sulfate (Ventolin Aerosols) 2.5 mg INHALATION Q2H PRN PRN PRN Reason: SOB &/OR WHEEZING Last Admin: 03/17/19 09:49 Dose: 2.5 mg Documented by: Buprenorphine HCl (Buprenorphine Hcl) 12 mg SL DAILY [facility] Last Admin: 03/17/19 08:38 Dose: 12 mg Documented by: Dicyclomine HCl (Bentyl) 20 mg PO TIDAC [facility] Last Admin: 03/17/19 10:24 Dose: Not Given Documented by: Enoxaparin Sodium (Lovenox) 40 mg SC DAILY [facility] Last Admin: 03/17/19 08:27 Dose: 40 mg Documented by: Famotidine (Pepcid) 20 mg PO DAILY [facility] Last Admin: 03/17/19 08:26 Dose: 20 mg Documented by: Gabapentin (Neurontin) 800 mg PO BIDCM [facility] Last Admin: 03/17/19 08:27 Dose: 800 mg Documented by: Glucagon () 1 mg IM .X1 PRN PRN Reason: Hypoglycemia Sodium Chloride () 250 mls @ 15 mls/hr IV .[id number] PRN PRN Reason: Saline Flush Ceftriaxone Sodium 2 gm/ (Sodium Chloride) 50 mls @ 100 mls/hr IV Q24 [facility] Last Infusion: 03/17/19 10:17 Dose: Infused Documented by: Azithromycin 500 mg/ Dextrose 255 mls @ 250 mls/hr IV Q24 [facility] Last Infusion: 03/17/19 12:16 Dose: Infused Documented by: Dextrose (Dextrose 10%-Water) 250 mls @ 999 mls/hr IV .Q16M PRN; Protocol PRN Reason: HYPOGLYCEMIA Ketorolac Tromethamine (Toradol) 30 mg IV Q6H PRN PRN PRN Reason: Pain Score 4-10/10 Stop: 03/21/19 14:17 Last Admin: 03/17/19 12:08 Dose: 30 mg Documented by: Nitroglycerin (Nitrostat) 0.4 mg SUBLINGUAL Q5M PRN PRN Reason: CARDIAC/CHEST PAIN Nutritional Formula (Lactose Free) (Ensure Enlive) 120 ml PO 4X/DAY [facility] Last Admin: 03/17/19 08:25 Dose: Not Given Documented by: Ondansetron HCl (Zofran) 4 mg IV Q8H PRN PRN PRN Reason: NAUSEA/VOMITING Last Admin: 03/17/19 12:03 Dose: 4 mg Documented by: Polyethylene Glycol (Miralax) 17 gm PO DAILY JULIO C Last Admin: 03/17/19 08:28 Dose: Not Given Documented by: Sodium Chloride () 10 - 40 ml IV UD PRN PRN Reason: SALINE FLUSH Last Admin: 03/17/19 12:03 Dose: 10 ml Documented by: STROKE Vital Signs/Narrative: Vital Signs Temp Pulse Resp BP Pulse Ox 03/17/19 11:59 98.2 F 79 18 127/91 H 97 03/17/19 09:49 68 16 Medical Necessity - Tobacco Use Smoking Status: Former smoker Tobacco Use: Cigarettes Assessment/Plan 33 y/o admitted with a complaint of cough, general malaise adn shortness of breath 1. Sepsis due to Community acquired pneumonia * SIRS criteria now 0/4 * Is much better today. Lactic acid was only 1. * On IV ceftriaxone and azithromycin. Leukocytosis has resolved and WBC is now 6 * Urine for strep and Legionella were negative. Blood cultures pending and respiratory cultures pending. * Respiratory Gram stain showed 2+ gram-positive cocci and 1+ white blood cells with rare yeastlike organisms and rare epithelial cells. * Continue breathing treatments. Titrate oxygen to maintain saturation above 90%. * 2. Community-acquired pneumonia: Management as under 1. 3. Chest pain likely pleuritic * EKG was negative and troponins x3 were negative. Chest pain worsened by breathing in and out so it is mainly pleuritic. It is much better now. * On Tylenol as needed * * 4. History of opiate abuse: Has been clean for 3 years. On Suboxone. 5. Super morbid obesity: BMI is over 50. Complicates acute care, expected recovery and prognosis. DVT prophylaxis: Lovenox Code Visit Inpatient E&M: 99111 Subs Hosp L2
[2019-03-17] MEDS: guaiFENesin 1,200 MG Tablet 1200 MG PO (14:47)
--- NOTE | 2019-03-17 16:57 | CHAPLAIN ---
Type of Pastoral Visit _x__ Initial Visit ___ Follow-up Visit ___ On-call Visit ___ General Patient Visit ___ Spiritual Assessment ___ Family Conference ___ Bereavement ___ Rapid Response ___ Code Blue ___ Other (describe below) Pastoral Care Referral From _x__ Patient ___ Family ___ Nurse ___ Physician ___ Dry Boss ___ Biological Lab Technician ___ Other (describe below) Sacrament/Intervention _x__ Active listening ___ Anointing ___ Holiness ___ Bereavement ___ Communion ___ Jacqui exploration ___ _x__ Life review _x__ Prayer ___ Reconciliation ___ Sacrament of Sick _x__ Supportive presence ___ Wedding ___ Other (describe below) Pastoral Comments patient and her spouse are in room; pt states that her goal is to get home soon but will be staying overnight again; pt admits to anxiety about being away from her children/family; pt states that she has difficulty being in a hospital and was tearful when she spoke of it; gave time, presence, listening support, and prayer
[2019-03-18] MEDS: Ketorolac 30 MG/ML Syringe IV (01:01)
[2019-03-18] MEDS: 0.9% Saline Lock 10 ML Syringe IV (01:01)
[2019-03-18 03:02] VITALS: PULSE 72
[2019-03-18 03:58] VITALS: BP 113/66; PULSE 72; RESP 15; TEMP 36.9; O2SAT 92
[2019-03-18] MEDS: Gabapentin 800 MG Tablet PO (06:35)
[2019-03-18] MEDS: Dicyclomine 10 MG Capsule 20 MG PO (06:35)
[2019-03-18 06:56] LABS: Absolute Lymphocyte Count 2.67 X10^3/uL (0.83-4.51); Absolute Neutrophil Count 2.5 X10^3/uL (2.0-7.7); Basophil# 0.03 X10^3/uL; Basophil% 0.5 % (0-1); Eosinophil# 0.45 X10^3/uL; Eosinophils% 7.4 % (0-5); Hematocrit 33.1 % (37-47); Hemoglobin 10.8 g/dL (12.0-15.0); Lymphocyte # 2.67 X10^3/ul (4.0); Lymphocyte % 44.1 % (19-41); Mean Corp Hgb Conc 32.6 g/dL (32-36); Mean Corpuscular Volume 91.9 fL (81-99); Mean Platelet Vol. 9.5 fl (6.2-12.0); Monocyte# 0.38 X10^3/uL; Monocyte% 6.3 % (0-10); NRBC Flagged by Analyzer 0 % (0-5); Neutrophil # 2.51 X10^3/uL (2.7-7.7); Neutrophil % 41.4 % (47-70); Platelet Count 175 K/mm3 (150-450); RBC Distribution Width CV 11.9 % (11.6-14.6); RBC Distribution Width SD 40.4 fl (35.1-43.9); White Blood Count 6.1 K/mm3 (4.4-11.0)
[2019-03-18 07:23] LABS: Anion Gap 5 (5-15); BUN 12 mg/dL (7-18); BUN/Creat Ratio 18.3 RATIO (10-20); Calcium,Total 8.4 mg/dL (8.5-10.1); Chloride 110 mmol/L (98-107); Creatinine, Serum 0.66 mg/dL (0.55-1.02); EST Glomerular Filtration Rate 109 mL/min (>60); Est Glom Filt Rate - Afr Amer 131 mL/min (>60); Estimated Creatinine Clearance 89.78 ml/min; Glucose 87 mg/dL (74-106); Potassium 3.9 mmol/L (3.5-5.1); Sodium Level 141 mmol/L (136-145)
[2019-03-18 07:49] VITALS: PULSE 68
[2019-03-18] MEDS: BUPRENORPHINE HCL 8 MG TAB.SUBL 12 MG SL (08:00)
--- NOTE | 2019-03-18 09:51 | PCM.DC ---
You will use the following diet at home:: No restrictions Your food should be the consistency of: Regular Your liquids should be the consistency of: Regular/Thin Discharge Activity: Return to Normal Activity Weight Bearing Status: Weight bearing as tolerated Call your doctor if you observe: Fever of 101 or Higher, Shortness of breath Instructions: What Is Pneumonia?, Pneumonia Allergies/Adverse Reactions: Allergies No Known Allergies Allergy (Verified 03/16/19 08:17) Medications to take at Discharge Buprenorphine HCl/Naloxone HCl [Zubsolv 8.6-2.1 mg Tablet Sl] 1 tab PO DAILY 03/10/19 Famotidine 20 mg PO DAILY 03/10/19 Gabapentin 800 mg PO TID 03/10/19 Dicyclomine HCl [Bentyl] 20 mg PO BIDAC 03/16/19 Polyethylene Glycol 3350 [Miralax] 17 gm PO DAILY 03/16/19 Guaifenesin [Mucinex] 1,200 mg PO BID #30 tbmp.12hr 03/18/19 levoFLOXacin tablet [Levaquin tablet] 750 mg PO DAILY #5 tab 03/18/19 The following prescriptions were given: levoFLOXacin tablet [Levaquin tablet] 750 mg PO DAILY #5 tab Transmission Status: Pending to [facility] Guaifenesin [Mucinex] 1,200 mg PO BID #30 tbmp.12hr Transmission Status: Pending to [facility] Primary Care Physician: Merissa Choi MD [Primary Care Provider] - Please follow up with your Primary Care Physician in: one week Test Results: Test results from this visit will be discussed in further detail at your follow-up appointment, if applicable. Proposed Discharge Date: 03/18/19
[2019-03-18] MEDS: Famotidine 20 MG Tablet PO (10:38)
--- NOTE | 2019-03-18 10:44 | PHA.DC.MC ---
Pharmacy Service has performed discharge medication reconciliation and counseling for this patient. 1. LEVOFLOXACIN 750MG PO DAILY X 5 DAYS 2. GUAIFENESIN 1200MG PO BID The patient's discharge medication list was reviewed for discrepancies and discrepancies were resolved. Home Medications Buprenorphine HCl/Naloxone HCl [Zubsolv 8.6-2.1 mg Tablet Sl] 1 tab PO DAILY 03/10/19 Famotidine 20 mg PO DAILY 03/10/19 Gabapentin 800 mg PO TID 03/10/19 Dicyclomine HCl [Bentyl] 20 mg PO BIDAC 03/16/19 Polyethylene Glycol 3350 [Miralax] 17 gm PO DAILY 03/16/19 Guaifenesin [Mucinex] 1,200 mg PO BID #30 tbmp.12hr 03/18/19 levoFLOXacin tablet [Levaquin tablet] 750 mg PO DAILY #5 tab 03/18/19 The patient was counseled on the following discharge medications and changes in medications for homegoing were reviewed. The Reason for Use, instructions for use, and potential side effects were reviewed for all new medications. The patient's questions regarding all of their medications were answered. The patient was able to verbally demonstrate an understanding of their discharge medications.
[2019-03-18 11:26] VITALS: BP 117/76; PULSE 80; RESP 16; TEMP 37; O2SAT 93
--- NOTE | 2019-03-18 16:07 | DS.PCM_ITS ---
Discharge Date and Diagnosis Date of Admission: 03/16/19 Date of Discharge: 03/18/19 - Primary Discharge Diagnosis sepsis due to community acquired pneumonia Hospital Course and Treatment Imaging Results: Diagnostic Data Chest X-Ray 03/16/19 08:38 IMPRESSION: Right middle lobe and right lower lobe infiltrates. Follow-up is recommended. Electronically Signed: Seferino Lemus, at 8:59 EST , Service support , Chest CTA 03/16/19 09:38 IMPRESSION: Patchy bibasilar pulmonary infiltrates worse in the posterior medial segment of the left lower lobe. Electronically Signed: Seferino Lemus, at 10:35 EST , Service support , none Operations: None Procedures: None Summary of Care Provided: The patient is a 33 year old F with a past medical history of substance abuse. She was admitted through the ED on 03/16/2019 with a complaint of generalized malaise and shortness of breath. Patient had been treated for pneumonia a few days prior to admission and states she completed a 7-day course a few days ago. At that time, she thought she had an upper respiratory infection but she was told that she had pneumonia by her PCP. However symptoms have persisted and she now has a worsening cough productive of greenish sputum. She denies any fever but admits to chills and worsening shortness of breath as well as pleuritic chest pain. Review systems otherwise negative. She denied any nausea vomiting or diarrhea. Review of systems otherwise negative. On admission in the ED, vitals were significant for temperature of 99.1 with a heart rate of 101 and respiratory of 22. She was saturating at 95% on room air. CBC showed white cell count of 12.2 but was otherwise unremarkable. BMP was unremarkable. EKG or troponins were checked in the ED. However subsequently patient started comp laining of chest pain which arrived on the floor so an initial EKG was done which showed normal sinus rhythm with no acute ST changes. Troponin series was also ordered. Chest x-ray showed right middle lobe and right lower lobe infiltrates. CTA of the chest showed patchy bibasilar pulmonary infiltrates worse in the posterior middle segment of the left lobe is negative for any PE. She was admitted to be managed for sepsis due to community-acquired pneumonia, with failed outpatient therapy. Troponins x3 were negative. Chest pain seemed to be pleuritic due to pneumonia. She was started on IV ceftriaxone and azithromycin. Patient's SIRS criteria resolved. Symptoms improved and she felt much better. Patient was discharged home on 03/18/2019 with a prescription for p.o. Levaquin for 5 days. She is to follow-up with her primary care doctor within 1 week. Patient seen and examined prior to discharge. She had no complaints and felt much better. Shortness of breath had resolved and chest pain had resolved. Review systems otherwise negative. Labs and vitals reviewed. Home medication reviewed and reconciled. O/E; Vital Signs Height 5 ft 1 in Weight: 268 lb 15.423 oz Weight in Pounds 269.0 lbs Pulse Ox 93 Temperature 98.6 F Pulse Rate 80 Respiratory Rate 16 Blood Pressure 117/76 Blood Pressure Position Semi-Fowlers General: Alert, Oriented x3, Cooperative, No apparent distress, Lethargic, - - super morbid obesity HEENT: Atraumatic, PERRLA, EOMI, Normocephalic Oral: Dry Mucosa Neck: Supple, No JVD, Negative Carotid Bruits Lungs: Mildly diminished breath sounds bilaterally. No wheezes or crackles. Cardiovascular: Regular Rhythm, Normal S1, Normal S2, No murmurs, Tachycardic Abdomen: Bowel Sounds Present, Soft, Non Tender, Non-Distended, No Hepato- splenomegaly, Obese Extremities: No clubbing, No cyanosis, No edema, Capillary Refill Less than 3 Seconds Skin: No rashes, No breakdown Musculoskeletal: No Tenderness to Palpation of Joints or Extremities Lymphatic: No Cervical, Supraclavicular, or Inguinal Adenopathy Neurological: Cranial nerves II-XII grossly intact, Neuro grossly intact, Motor Exam 5/5 strength throughout Psych/Mental Status: Normal Affect, Appropriate, Alert and oriented to time, place, person, mood and affect Plan as above. - Physical Exam Vitals/I&O's: Vital Signs Temp Pulse Resp BP Pulse Ox 98.6 F 80 16 117/76 93 03/18/19 11:26 03/18/19 11:26 03/18/19 11:26 03/18/19 11:26 03/18/19 11:26 Oxygen Delivery Method Room Air Weight: 268 lb 15.423 oz Body Mass Index (BMI) 50.8 Intake and Output for Last 24 Hours 03/16/19 03/17/19 03/18/19 23:59 23:59 23:59 Intake Total 2512.5 / 3012.5 2732.00 / 2732.00 Balance 2512.5 / 3012.5 2732.00 / 2732.00 Microbiology Past 72 Hours 03/16/19 18:12 Sputum, Expectorated/Coughed Gram Stain - Final 03/16/19 18:12 Sputum, Expectorated/Coughed Respiratory Culture - Preliminary Appears to be normal respiratory toni. Further studies to follow. 03/16/19 09:10 Blood Culture (Wb) - Right Hand Blood Culture - Preliminary No growth in 48 hours. 03/16/19 09:04 Blood Culture (Wb) - Left Forearm Blood Culture - Preliminary No growth in 48 hours. 03/16/19 16:10 Urine, Clean Catch Streptococcus pneumoniae Antigen (M - Final 03/16/19 16:10 Urine, Clean Catch Legionella Antigen - Final Laboratory Results 03/18/19 06:34: WBC 6.1, RBC 3.60 L, Hgb 10.8 L, Hct 33.1 L, MCV 91.9, MCH 30.0, MCHC 32.6, RDW Std Deviation 40.4, RDW Coeff of Lizette 11.9, Plt Count 175, MPV 9.5, Immature Gran % (Auto) 0.300, Neut % (Auto) 41.4 L, Lymph % (Auto) 44.1 H, [place] % (Auto) 6.3, Eos % (Auto) 7.4 H, Baso % (Auto) 0.5, Absolute Neuts (auto) 2.5, Absolute Lymphs (auto) 2.67, Nucleated RBC % 0 03/18/19 06:34: Sodium 141, Potassium 3.9, Chloride 110 H, Carbon Dioxide 26.0, Anion Gap 5, BUN 12, Creatinine 0.66, Estim Creat Clear Calc 89.78, Est GFR (MDRD) Af Amer 131, Est GFR (MDRD) Non-Af 109, BUN/Creatinine Ratio 18.3, Glucose 87, Calcium 8.4 L Discharge Diet: No Restrictions Discharge Activity: Return to Normal Activity Weight Bearing Status: Weight bearing as tolerated Call your doctor if you observe: Fever of 101 or Higher, Shortness of breath Home Medications: Medications to take at Discharge Buprenorphine HCl/Naloxone HCl [Zubsolv 8.6-2.1 mg Tablet Sl] 1 tab PO DAILY 03/10/19 Famotidine 20 mg PO DAILY 03/10/19 Gabapentin 800 mg PO TID 03/10/19 Dicyclomine HCl [Bentyl] 20 mg PO BIDAC 03/16/19 Polyethylene Glycol 3350 [Miralax] 17 gm PO DAILY 03/16/19 Guaifenesin [Mucinex] 1,200 mg PO BID #30 tbmp.12hr 03/18/19 levoFLOXacin tablet [Levaquin tablet] 750 mg PO DAILY #5 tab 03/18/19 Following Prescrptions Were Given to Patient: levoFLOXacin tablet [Levaquin tablet] 750 mg PO DAILY #5 tab Transmission Status: Received by [facility] Guaifenesin [Mucinex] 1,200 mg PO BID #30 tbmp.12hr Transmission Status: Received by [facility] Primary Care Physician: Merissa Choi MD [Primary Care Provider] - Please follow up with your Primary Care Physician in: one week Please Follow Up With: Merissa Choi MD Patient Instructions: What Is Pneumonia?, Pneumonia Disposition: Home Minutes spent on discharge:: 35 Patient Condition:: Stable Medical Necessity - Tobacco Use Smoking Status: Former smoker Tobacco Use: Cigarettes Meaningful Use Info Meaningful Use Diagnoses (Choose all that apply): None applicable Code Visit Inpatient E&M: 93587 Disch Hosp
--- NOTE | 2019-03-21 15:48 | CASEMGMT ---
NELDA PERALTA Discharge F/U Phone Call Lace: 9 Strata: 3 Discharge date: 03/18/19 Call date: 03/21/19 Call time: [id number] Admission dx: Sepsis d/t pneumonia Pt states doing 'a lot better' since discharge. Pt states no questions regarding discharge instructions or medications at this time. Pt states has f/u appts and plans to keep them. Pt states no suggestions for [facility] at this time. Pt voices no further questions/concerns/needs at this time. SStaten NELDA PERALTA
== END 2019-03-18 11:19 | disposition home or self-care (01) | DRG 720 ==
LOC: ED 08:59 → PCU 12:07
PROVIDERS: Admitting Provider Student in an Organized Health Care Education/Training Program; Emergency Provider Emergency Medicine; Family Provider Internal Medicine; PCP Internal Medicine; Referring Provider Student in an Organized Health Care Education/Training Program; Visit Provider Student in an Organized Health Care Education/Training Program
DX: A41.9 Sepsis, unspecified organism (principal); J18.9 Pneumonia, unspecified organism; Z68.43 Body mass index [BMI] 50.0-59.9, adult; E66.01 Morbid (severe) obesity due to excess calories; Z87.891 Personal history of nicotine dependence
CPT/HCPCS: 36415; 71046; 71275; 80048; 80053; 83605; 84484; 85025; 85379; 87040; 87070; 87205; 87449; 93005; 94640; 94762; 97802; 99284; J7030; J7050; Q9967; A4216; J0696; J2405

== ENCOUNTER 2021-03-21 12:09 | Emergency (ER) | payer MEDICAID, SELFPAY ==
[2021-03-21 12:09] VITALS: BP 139/98; PULSE 80; RESP 16; TEMP 36.3; O2SAT 97; BMI 46.7
--- NOTE | 2021-03-21 12:39 | ED.VIS.GI ---
HPI HPI - GI History of Present Illness Chief Complaint: Abd Pain Informant: patient Abdominal Pain/Flank Pain Onset: Month(s) (6) Timing: Intermittent and Lasts (10 min) Quality: Burning Location: Epigastric (from subumbilical coming up to epigastrium) Current Severity: Gone Maximum Severity: Severe Worsened by: Nothing Relieved by: Nothing Nausea/Vomiting/Emesis GI Symptom: Positive for Nausea and Vomiting Diarrhea/Melena/Hematochezia GI Symptom: Negative for Diarrhea, Melena and Hematochezia Stool Quality: Negative for Loose, Mucous, Black and BRB per rectum Associated Symptoms Associated Symptoms: Positive for - (facial flushing/feeling hot); Negative for Dysuria, Frequency, Hematuria and Urgency Narrative Narrative: Patient has been having episodes of this abdominal discomfort for the past 6 months or so, it has been worse since yesterday, occurring every 10 minutes or so without any obvious etiology or trigger. Seems random. Not associated with food or having a bowel movement. She is on Suboxone for history of heroin abuse, she has been on that for years, the dose has not changed, and she notes no association with taking this. She denies any new substance use. She denies any thoracic symptoms, fevers, chills, near-syncope or syncope, but she really feels crummy when she gets the facial flushing associated with this. [facility] Medical History (Updated 03/21/21 @ 14:[address] Mariusz Duke MD) Opiate addiction Home Medications buprenorphine-naloxone 1 tab PO DAILY 03/10/19 [History Last Taken 03/16/19] famotidine 20 mg PO DAILY 03/10/19 [History Last Taken 03/16/19] gabapentin 800 mg PO TID 03/10/19 [History Last Taken 03/15/19] polyethylene glycol 3350 17 gm PO DAILY 03/16/19 [History Last Taken 03/15/19] guaifenesin 1,200 mg PO BID #30 tbmp.12hr 03/18/19 [Rx Last Taken Unknown] levofloxacin 750 mg PO DAILY #5 tab 03/18/19 [Rx Last Taken Unknown] dicyclomine 20 mg PO Q6H PRN #20 cap 03/21/21 [Rx Last Taken Unknown] Allergy/AdvReac Type Severity Reaction Status Date / Time No Known Allergies Allergy Verified 03/21/21 12:12 Social History Smoking Status: Former smoker ROS ROS ED Constitutional Constitutional ED: Denies chills or fever(s) Eyes Eyes: Denies change in vision or diplopia ENT ENT ED: Denies rhinorrhea or sore throat Cardiovascular Cardiovascular: Denies chest pain or palpitations Respiratory/Chest Respiratory/Chest: Denies cough or dyspnea Gastrointestinal Gastrointestinal: Reports as per HPI, abdominal pain, nausea and vomiting; Denies diarrhea Genitourinary Genitourinary ED: Denies dysuria or hematuria Musculoskeletal Musculoskeletal: Denies back pain or neck pain Integumentary Denies abscess or rash Neurologic Neurologic: Denies headache(s), paresthesias or weakness Psychiatric Psychiatric: Denies anxiety or suicidal thoughts Endocrine Endocrinology: Reports as per HPI and flushing EXAM Physical Exam Const Vital Signs: 03/21/21 12:09 Temperature 97.4 F L Temperature Source Temporal Pulse Rate 80 Respiratory Rate 16 Blood Pressure 139/98 H Blood Pressure Mean 111 Pulse Ox 97 Oxygen Delivery Method Room Air Positive well nourished, well developed and obese Constitutional Narrative: Well-appearing in no distress General Appearance ED: well developed and NAD Nutritional Appearance: obese HEENT Reports moist mucous membranes normocephalic and atraumatic Eyes PERRL and EOMs intact bilaterally Neck full ROM and supple Resp normal respiratory effort and clear to auscultation bilaterally Cardio regular rate, regular rhythm and no murmurs GI non-tender and non-distended Auscultation: normoactive bowel sounds Palpation: soft Back/Spine no CVA tenderness General Back: other FROM Extremity normal to inspection General Extremety ED: Negative for edema, pulses abnormal or tenderness General Extremity: Negative for edema or pulses abnormal Neuro oriented x3, CN's II-XII intact bilaterally and no sensory deficits noted Sensorium / Orientation: awake and alert Motor Exam: strength 5/5 throughout Skin no rashes or lesions noted and no wounds MDM MDM MDM Narrative Medical decision making narrative: Broad differential for this patient's symptoms including functional causes of abdominal pain, porphyria which is less likely given her lack of anemia, and hormonal non-gastrointestinal etiologies. I did give the patient a dicyclomine here, she states it helped quite a bit and she was feeling much better and slept throughout her ED stay, making GI functional etiologies more likely in my judgment. We will refer her to GI and give her a prescription for more to use as needed, she is comfortable with the plan. Lab Data Attestation: I reviewed the patient's lab results. Labs: Laboratory Results - last 24 hr 03/21/21 03/21/21 03/21/21 12:48 12:48 12:48 WBC 4.3 L RBC 4.38 Hgb 12.8 Hct 38.4 MCV 87.7 MCH 29.2 MCHC 33.3 RDW Std Deviation 38.5 RDW Coeff of Lizette 11.9 Plt Count 169 MPV 10.0 Immature Gran % (Auto) 0.200 Neut % (Auto) 48.8 Lymph % (Auto) 41.9 H Benson % (Auto) 7.3 Eos % (Auto) 1.6 Baso % (Auto) 0.2 Absolute Neuts (auto) 2.1 Absolute Lymphs (auto) 1.79 Nucleated RBC % 0 Sodium 139 Potassium 3.6 Chloride 106 Carbon Dioxide 29.0 Anion Gap 4 L BUN 11 Creatinine 0.81 Estim Creat Clear Calc 71.76 Est GFR (MDRD) Af Amer 102 Est GFR (MDRD) Non-Af 85 BUN/Creatinine Ratio 13.6 Glucose 89 Calcium 8.3 L Total Bilirubin 0.30 AST 39 H ALT 67 H Alkaline Phosphatase 79 Total Protein 6.8 Albumin 3.3 Globulin 3.5 Albumin/Globulin Ratio 0.9 Lipase 38 L Urine Color Yellow Urine Clarity Sl. Cloudy Urine pH 6.0 Ur Specific [place] 1.015 Urine Protein Negative Urine Glucose (UA) Normal Urine Ketones 5 H Urine Occult Blood Negative Urine Nitrite Negative Urine Bilirubin Negative Urine Urobilinogen Normal Ur Leukocyte Esterase Negative Urine RBC 0 SEEN Urine WBC 0 SEEN Ur Squamous Epith Cells 0-5 SEEN Urine Bacteria 0 SEEN Urine Mucus 0 SEEN Discharge Plan Triage Chief Complaint: Abd Pain ED Provider: Mariusz Duke Dx/Rx/DC Orders Clinical Impression: Intermittent generalized abdominal pain Instructions: Abdominal Pain Prescriptions: Continued famotidine 20 MG tablet 20 mg PO DAILY RF: 0 gabapentin 800 MG tablet 800 mg PO TID RF: 0 buprenorphine-naloxone 1 EACH tablet, sublingual 1 tab PO DAILY RF: 0 polyethylene glycol 3350 17 GM packet 17 gm PO DAILY RF: 0 levofloxacin 750 MG tablet 750 mg PO DAILY Qty: 5 RF: 0 guaifenesin 1,200 MG tablet 1,200 mg PO BID Qty: 30 RF: 0 Changed dicyclomine 10 MG capsule 20 mg PO Q6H PRN (Reason: abdominal discomfort) Qty: 20 RF: 0 Primary Care Provider: Merissa Choi Referrals: Merissa Choi MD [Primary Care Provider] - FriendPeter DO [STAFF PHYSICIAN] - (Call for appointment to be seen when able) Disposition Disposition: Home, Self Care
[2021-03-21] MEDS: Dicyclomine 10 MG Capsule 20 MG PO (12:50)
[2021-03-21 13:05] LABS: Bacteria 0 SEEN /hpf (None Seen); Mucous, Urine 0 SEEN /hpf (<or=2+); Red Blood Cells-Urine 0 SEEN /hpf (0-5); White Blood Cells 0 SEEN /hpf (0-5)
[2021-03-21 13:08] LABS: Absolute Lymphocyte Count 1.79 X10^3/uL (0.83-4.51); Absolute Neutrophil Count 2.1 X10^3/uL (2.0-7.7); Basophil# 0.01 X10^3/uL; Basophil% 0.2 % (0-1); Eosinophil# 0.07 X10^3/uL; Eosinophils% 1.6 % (0-5); Hematocrit 38.4 % (37-47); Hemoglobin 12.8 g/dL (12.0-15.0); Lymphocyte # 1.79 X10^3/ul (0.83-4.51); Lymphocyte % 41.9 % (19-41); Mean Corp Hgb Conc 33.3 g/dL (32-36); Mean Corpuscular Hgb 29.2 pg (27.0-32.0); Mean Corpuscular Volume 87.7 fL (81-99); Monocyte# 0.31 X10^3/uL; Monocyte% 7.3 % (0-10); NRBC Flagged by Analyzer 0 % (0-5); Neutrophil # 2.08 X10^3/uL (2.7-7.7); Neutrophil % 48.8 % (47-70); Platelet Count 169 K/mm3 (150-450); RBC Distribution Width CV 11.9 % (11.6-14.6); RBC Distribution Width SD 38.5 fl (35.1-43.9); Red Blood Count 4.38 M/mm3 (4.2-5.4); White Blood Count 4.3 K/mm3 (4.4-11.0)
[2021-03-21 13:12] LABS: Color, Urine Yellow (Yellow); Glucose, Dipstick Normal (Normal); Ketone-Dipstick 5 mg/dl (Negative); Leukocyte Esterase-Dipstick Negative /ul (Negative); Nitrite-Dipstick Negative (Negative); Occult Blood-Urine Negative /ul (Negative); Protein-Dipstick Negative (Negative); Specific Gravity, Urine 1.015 (1.002-1.030); Urine Bilirubin Dipstick Negative (Negative); Urine Clarity Sl. Cloudy (Clear); Urine Urobilinogen Normal (Normal)
[2021-03-21 13:20] LABS: Squamous Epithelial Cells - UA 0-5 SEEN /hpf (5-10)
[2021-03-21 13:23] LABS: ALB/GLOB Ratio 0.9 RATIO (0.9-2.4); AST(SGOT) 39 U/L (15-37); Alanine Aminotransfer ALT/SGPT 67 U/L (13-56); Albumin, Serum 3.3 g/dL (3.2-5.0); Alkaline Phosphatase 79 U/L (45-117); Anion Gap 4 (5-15); BUN 11 mg/dL (7-18); BUN/Creat Ratio 13.6 RATIO (10-20); Calcium,Total 8.3 mg/dL (8.5-10.1); Chloride 106 mmol/L (98-107); Creatinine, Serum 0.81 mg/dL (0.55-1.02); EST Glomerular Filtration Rate 85 mL/min (>60); Est Glom Filt Rate - Afr Amer 102 mL/min (>60); Estimated Creatinine Clearance 71.76 ml/min; Globulin 3.5 g/dL (2.2-4.2); Glucose 89 mg/dL (74-106); Lipase 38 U/L (73-393); Potassium 3.6 mmol/L (3.5-5.1); Protein, Total 6.8 g/dL (6.4-8.2); Sodium Level 139 mmol/L (136-145)
[2021-03-21 14:15] VITALS: PULSE 78; O2SAT 97
== END 2021-03-21 14:15 | disposition home or self-care (01) ==
PROVIDERS: Emergency Provider Emergency Medicine; PCP Internal Medicine; Visit Provider Emergency Medicine
DX: R10.84 Generalized abdominal pain (principal); E66.9 Obesity, unspecified; Z87.891 Personal history of nicotine dependence
CPT/HCPCS: 80053; 81001; 83690; 85025; 99284; J7030

== ENCOUNTER 2021-04-23 10:04 | Outpatient (CLI) | payer MEDICAID, SELFPAY ==
[2021-04-23 11:27] LABS: Erythrocyte Sedimentation Rate 9 mm/hr (0-30)
[2021-04-23 11:46] LABS: Hemoglobin A1c 5.6 % (3.8-5.6)
[2021-04-23 11:52] LABS: CRP < 2.90 mg/L (0.0-3.0); Ferritin 46 ng/mL (8-252); LDH 207 U/L (84-246)
[2021-04-23 12:17] LABS: HIV - WCH Non-Reactive (Nonreactive)
[2021-04-24 16:10] LABS: Anti-Centromere B Ab <0.2 AI (0.0-0.9); Anti-Chromatin <0.2 AI (0.0-0.9); Anti-Jo <0.2 AI (0.0-0.9); Anti-Scleroderma-70 AB <0.2 AI (0.0-0.9); RNP Ab <0.2 AI (0.0-0.9); SJOGREN'S Anti-SS-A test < 0.2 AI (0.0-0.9); SJOGREN'S Anti-SS-B test < 0.2 AI (0.0-0.9); Smith Ab <0.2 AI (0.0-0.9)
[2021-04-24 17:54] LABS: Anti-Mitochondrial AB <20.0 Units (0.0-20.0); Anti-dsDNA Ab 2 IU/mL (0-9)
[2021-04-26 20:08] LABS: Angiotensin Convert Enzyme 32 U/L (14-82); Ceruloplasmin 26.7 mg/dL (19.0-39.0); Cytoplasmic Ab (C-ANCA) <1:20 titer (Neg:<1:20); HEPATITIS B SURFACE AG Negative (Negative); Hepatitis A IgM Antibody Negative (Negative); Hepatitis B Core AB IgM Negative (Negative)
[2021-04-26 20:26] LABS: AFP, Tumor Marker 2.5 ng/mL (0.0-8.3); Anti-Smooth Muscle ABS 12 Units (0-19); Copper, Serum or Plasma 132 ug/dL (80-158); Haptoglobin 200 mg/dL (33-278); Hep C Antibodies <0.1 s/co ratio (0.0-0.9); Perinuclear Ab (P-ANCA) <1:20 titer (Neg:<1:20)
== END 2021-04-23 23:59 | disposition home or self-care (01) ==
LOC: LAB 10:06
PROVIDERS: PCP Internal Medicine; Referring Provider Internal Medicine Gastroenterology; Visit Provider Internal Medicine Gastroenterology
DX: R16.0 Hepatomegaly, not elsewhere classified (principal); R10.9 Unspecified abdominal pain
CPT/HCPCS: 80074; 82105; 82164; 82390; 82525; 82728; 83010; 83036; 83516; 83615; 85652; 86140; 86225; 86235; 86256; 86703

== ENCOUNTER 2021-05-14 09:04 | Outpatient (CLI) | payer MEDICAID, SELFPAY ==
--- NOTE | 2021-05-14 09:14 | US_ITS ---
STUDY: ABDOMINAL ULTRASOUND - RIGHT UPPER QUADRANT REASON FOR VISIT: Female, 35 years old hepatomegaly TECHNIQUE: Ultrasound evaluation of the right upper quadrant was performed with real-time and static martinez-scale imaging. TECHNICAL QUALITY: Adequate. COMPARISON: None. FINDINGS: Liver: The liver is mildly enlarged and measures 17 cm. There is increased echogenicity consistent with fatty infiltration. The bile ducts are within normal limits. There is hepatic color flow. The direction of portal flow is hepatopetal. There is no demonstrated mass lesion. Gallbladder: The patient is status post cholecystectomy. Common Bile Duct (C.B.D.): The common bile duct measures 7.7 mm. Pancreas: Normal size of the head, body and tail of the pancreas. There is normal echogenicity of the pancreas. There is no demonstrated pancreatic mass or cyst. Right Kidney: Normal size of the right kidney. The right kidney measures 12 cm x 6.2 cm x 4.4 cm. Normal renal cortex. The right cortex measures 1.4 cm. There is no demonstrated renal mass or cyst. There is no right hydronephrosis. US/Abdomen Limited IMPRESSION: Borderline hepatomegaly and fatty infiltration of the liver. Electronically Signed: Seferino Lemus MD at 13:10 EST ,
--- NOTE | 2021-05-14 09:14 | US_ITS ---
STUDY: ABDOMINAL ULTRASOUND - ELASTOGRAPHY REASON FOR VISIT: Female, 35 years old. Hepatomegaly. TECHNIQUE: Liver stiffness measurements were obtained on a [employer] RS 85 ultrasound machine using a CA 1-7 probe following the SRU guidelines. 3 measurements were obtained using a 2-D-SWE method. The IQR/M was 18% suggesting a quality data set. TECHNICAL QUALITY: Adequate. COMPARISON: Comparison is made with prior examination done earlier today. FINDINGS: Liver: Fatty infiltration of the liver. Median liver stiffness measured 4.4 kPa. US/Elastography Parenchyma/Organ IMPRESSION: Liver stiffness measures 4.4 kPa compatible with FO (Normal) Metavir score. Electronically Signed: Seferino Lemus MD at 13:12 EST ,
== END 2021-05-14 23:59 | disposition home or self-care (01) ==
LOC: US 09:07
PROVIDERS: PCP Internal Medicine; Visit Provider Internal Medicine Gastroenterology
DX: R16.0 Hepatomegaly, not elsewhere classified (principal); R10.9 Unspecified abdominal pain
CPT/HCPCS: 76705; 76981

== ENCOUNTER 2021-06-06 09:48 | Day surgery (SDC) | payer MEDICAID, SELFPAY ==
[2021-06-06] VITALS (7 sets, daily range): BP systolic 90–117; BP diastolic 60–83; PULSE 57–77; RESP 16–18; TEMP 36.2–37.1; O2SAT 97–100; BMI 44.9
[2021-06-06] MEDS: Lactated Ringers 1,000 ML 15 ML IV (10:24)
--- NOTE | 2021-06-06 10:45 | COLBX_PTH ---
PATIENT: JANA LILLY LOC: EN U#:[id number] AGE/SX: 35/F ROOM: RE06/06/[address]: Dr. Peter Horn DO : 1985 BED: DIS: 06/06/2021 SPEC #: [id number] RECD: 06/06/21 16:15 STATUS: MARGE REJose Roberto #: [id number] DEANGELO: 06/06/21 10:[address]: Peter Horn DEPT: SURGICAL PATHOLOGY RECD BY: Luca Salinas ENTERED: 06/07/21 09:06 SP TYPE: COLON BX OTHR DR: Dr. Merissa Choi MD Tissues: A - Gastric mucous membrane B - Ileum, NOS C - COLON BIOPSY Procedures: Surgery Specimen Level IV HEADER OPERATION: [place]oscopy, [place], [place] [place] DIAGNOSIS: Hepatomegaly, acute abdominal pain TISSUE SUBMITTED: A - Gastric ulcer gastric antrum, B - Terminal ileum biopsy, C - Random colon biopsy MICROSCOPIC DIAGNOSIS A. Gastric ulcer, gastric antrum, biopsy: Mild gastritis. See microscopic description and comment. B. Terminal ileum, biopsy: Fragments of small intestinal mucosa, no pathologic diagnosis. C. Colon, random biopsy: Fragments of colonic mucosa, no pathologic diagnosis. SJ:rg 06/10/2021 COMMENT A. The results of immunohistochemistry for Helicobacter pylori will be reported separately ([id number]). MICROSCOPIC DESCRIPTION Slides are reviewed. A. The specimen shows fragments of gastric mucosa with chronic inflammatory cell infiltrates in the lamina propria consisting of lymphocytes and plasma cells, consistent with mild chronic gastritis. GROSS DESCRIPTION A - Received in fixative is one container labeled with the patient's name and designated gastric ulcer gastric antrum biopsy. The specimen consists of two irregular fragments of light sierra soft tissue that in aggregate measure 0.6 x 0.3 x 0.1 cm. The specimen is totally submitted in one cassette. B - Received in fixative is one container labeled with the patient's name and designated terminal ileum biopsy. The specimen consists of two irregular fragments of light sierra soft tissue that in aggregate measure 0.6 x 0.3 x 0.1 cm. The specimen is totally submitted in one cassette. C - Received in fixative is one container labeled with the patient's name and designated random colon biopsy. The specimen consists of multiple irregular fragments of light sierra soft tissue that in aggregate measure 2.5 x 0.6 x 0.1 cm. The specimen is totally submitted in one cassette. / SJ:rg 06/07/2021 TC:3 CPT: 28119 x3
--- NOTE | 2021-06-06 10:45 | IMM_PTH ---
PATIENT: JANA LILLY LOC: EN U#:[id number] AGE/SX: 35/F ROOM: RE06/06/[address]: Dr. Peter Horn DO : 1985 BED: DIS: 06/06/2021 SPEC #: [id number] RECD: 06/07/21 13:23 STATUS: MARGE REQ #: [id number] DEANGELO: 06/06/21 10:[address]: Peter Horn DEPT: IMMUNOHISTOCHEMISTRY RECD BY: Mable Estrada ENTERED: 06/07/21 13:23 SP TYPE: IMMUNO OTHR DR: Dr. Merissa Choi MD Tissues: A - Stomach, NOS Procedures: H Pylori (initial) PHYSICIAN & INSTITUTION [place] [id number] SPECIMEN INFORMATION: Tissue Source: A ? Gastric ulcer gastric antrum Clinical Info: Hepatomegaly Specimen Number: [id number] CPT code: 88400 METHODOLOGY: Deparaffinized sections of prefer/formalin-fixed tissue or PAP/DQ stained slides are incubated with monoclonal/polyclonal antibodies/oligonucleotide probes. Localization is made via biotin free immunoperoxidase method. Appropriate controls are performed and reacted as expected. Results on target cell population are indicated in the following table: RESULTS: ANTIBODY / CLONE RESULT Block A H Pylori (polyclonal) negative These tests were developed and their performance characteristics determined by [facility]. They may not have been cleared or approved by the U.S. Food and Drug Administration. The FDA has determined that such clearance or approval is not necessary. The above immunohistochemical/dualISH markers are ordered and reviewed by the Pathologist. INTERPRETATION: A. Gastric ulcer, gastric antrum, biopsy: Negative for Helicobacter pylori organisms. SJ:joe 06/10/2021
--- NOTE | 2021-06-06 10:56 | HP.PCM_ITS ---
History and Physical Date of Admission: 06/06/21 JANA LILLY, is a 35 F who presents to the office today for Reports burning in her stomach for the last six months with worsening in intensity and frequency. This burning will become intense enough causing her to vomit, emesis started several months after burning started; will wake her up at night to vomit 3-4 times a week. Denies aggravating or alleviating factors. Reports attempting bentyl, Pepcid, omeprazole which have all been ineffective. Zofran is effective with nausea. Increased anxiety in her life, she does see counseling once a week for history of illicit drug use. 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 She has known difficulty with anxiety and nightm mary. Medications have been attempted in the past, however she had suicidal ideation and stopped. She was seeing her PCP for these medications, psychiatry services discussed. Interaction between psychiatric health and gastrointestinal health discussed. Presented to [facility] ED 03.21.21 for evaluation of abdominal discomfort that worsened over 24 hours. Onset six months prior. No obvious etiology or trigger identified. Suboxone taken for history of heroin abuse for many years without changes or side effects. Differential diagnoses ED included porphyria (less likely given lack of anemia) and hormonal non-gastrointestinal etiologies. Dicyclomine given in ED with positive effect. CT abd/pel performed 03.10.19 finding diffuse fecal retention in colon. Mildly increased attenuation of intraluminal content of distal descending colon and rectum. Radionuclide tagged to red blood cell study would be helpful for further evaluation. ROS Gastro GI: Positive for abdominal pain, change in bowel habits, cramping, nausea/dyspepsia and vomiting Exam Const General: cooperative and comfortable Nutritional Appearance: average body habitus and well nourished [facility] Head: normal to inspection Ears: hearing grossly normal bilaterally Nose: external nose normal Face and sinus: normal facial exam Mouth: oral mucosae normal Throat: posterior oropharynx normal Eyes General: appearance normal, both eyes and all related structures Neck Neck: normal visual inspection Chest Chest palpation & inspection: normal inspection of the chest and normal palpation of entire chest wall Resp Effort & Inspection: normal respiratory effort Auscultation: Bilateral: Clear to Auscultation Cardio Palpation: normal PMI Rate: regular rate Rhythm: regular rhythm GI Inspection: normal to inspection Auscultation: normal bowel sounds Percussion: normal to percussion Palpation: no hepatosplenomegaly Skin General: no rashes or lesions noted Neuro General: patient alert Extrem General: normal to inspection Psych Affect: normal affect Quality Reporting Tobacco Screening ([facility] 138) Smoking Status: Former smoker Assessment and Plan Assessment and Plan (1) Hepatomegaly: Status: Acute Orders: Orders: Ferritin Today Hemoglobin A1c Today Erythrocyte Sed Rate Today Haptoglobin Today CRP Today LDH Today Angiotensin Convert Enzyme Today AFP, Tumor Marker Today Ceruloplasmin Today HIV - [facility] Today Anti-Mitochondrial AB Today Hepatitis Panel Acute Today ANCA Today Anti-Smooth Muscle ABS Today Copper, Serum or Plasma Today Miscellaneous Lab Procedure Today Abdomen Limited Today Elastography Parenchyma/Organ Today Plan - Dr. Green Friend, DO: Patient did not know that she had hepatomegaly. Her liver was approximately 20 cm in transverse dimension. This is back on a CT scan that she had approximately 2 years ago. She has gained weight. She does not use any alcohol. She has not used any street drugs in approximately 6 years. She does not know she has any history of hepatitis C. We will get a biochemical work-up looking for acute or chronic viral hepatitis. (2) Abdominal pain: Status: Acute Orders: Orders: Ferritin Today Hemoglobin A1c Today Erythrocyte Sed Rate Today Haptoglobin Today CRP Today LDH Today Angiotensin Convert Enzyme Today AFP, Tumor Marker Today Ceruloplasmin Today HIV - [facility] Today Anti-Mitochondrial AB Today Hepatitis Panel Acute Today ANCA Today Anti-Smooth Muscle ABS Today Copper, Serum or Plasma Today Miscellaneous Lab Procedure Today Abdomen Limited Today Elastography Parenchyma/Organ Today Plan - Dr. Green Friend, DO: The differential diagnosis for abdominal pain does include gastroparesis, medication side effect due to his being on Suboxone therapy, peptic ulcer disease, duodenitis, gastritis, atypical reflux esophagitis. Also recommend that we do a complete work-up to rule out the problems with her liver including a FibroScan along with biochemical testing. I have re-examined the patient. There are no clinical changes since date of exam.
--- NOTE | 2021-06-06 11:52 | OP.EGD_ITS ---
Patient Name: Coby Cook Procedure Date: 06/06/2021 11:01 AM Date of : 1985 Age: 35 Procedure: Upper GI endoscopy Indications: Epigastric abdominal pain Providers: Peter Horn DO Medicines: See the Anesthesia note for documentation of the administered medications Patient Profile: This is a 35 year old female. Refer to note in patient chart for documentation of history and physical. Patient has symptoms of acute epigastric abdominal pain. Complications: No immediate complications. Procedure: Pre-Anesthesia Assessment: - Prior to the procedure, a History and Physical was performed, and patient medications and allergies were reviewed. The risks and benefits of the procedure and the sedation options and risks were discussed with the patient. All questions were answered and informed consent was obtained. Patient identification and proposed procedure were verified by the physician in the pre-procedure area. Mental Status Examination: alert and oriented. Airway Examination: normal oropharyngeal airway and neck mobility. Respiratory Examination: clear to auscultation. CV Examination: normal. Prophylactic Antibiotics: The patient does not require prophylactic antibiotics. Prior Anticoagulants: The patient has taken no previous anticoagulant or antiplatelet agents. ASA Grade Assessment: II - A patient with mild systemic disease. After reviewing the risks and benefits, the patient was deemed in satisfactory condition to undergo the procedure. The anesthesia plan was to use moderate sedation / analgesia (conscious sedation). Immediately prior to administration of medications, the patient was re-assessed for adequacy to receive sedatives. The heart rate, respiratory rate, oxygen saturations, blood pressure, adequacy of pulmonary ventilation, and response to care were monitored throughout the procedure. The physical status of the patient was re-assessed after the procedure. After obtaining informed consent, the endoscope was passed under direct vision. Throughout the procedure, the patient's blood pressure, pulse, and oxygen saturations were monitored continuously. The pediatric colonoscope was introduced through the mouth, and advanced to the second part of duodenum. The upper GI endoscopy was accomplished without difficulty. The patient tolerated the procedure well. Moderate Sedation: Moderate (conscious) sedation was administered by the endoscopy nurse and supervised by the endoscopist. The patient's oxygen saturation, heart rate, blood pressure and response to care were monitored. Total physician intraservice time was 15 minutes. Scope In: 11:15:33 AM Scope Out: 11:19:50 AM Total Procedure Duration Time 0 hours 4 minutes 17 seconds Findings: The examined esophagus was normal. One non-bleeding cratered gastric ulcer with no stigmata of bleeding was found in the gastric antrum. The lesion was 6 mm in largest dimension. Biopsies were taken with a cold forceps for histology. Verification of patient identification for the specimen was done. Estimated blood loss was minimal. The second portion of the duodenum was normal. Impression: - Normal esophagus. - Non-bleeding gastric ulcer with no stigmata of bleeding. Biopsied. - Normal second portion of the duodenum. Recommendation: - Discharge patient to home. - Resume previous diet. - Continue present medications. - Await pathology results. - Repeat upper endoscopy in 1 year for surveillance based on pathology results. - Return to GI office. Procedure Code(s): --- Professional --- 96790, Esophagogastroduodenoscopy, flexible, transoral; with biopsy, single or multiple 85639, 59, Moderate sedation services provided by the same physician or other qualified health rn homecare performing the diagnostic or therapeutic service that the sedation supports, requiring the presence of an independent trained observer to assist in the monitoring of the patient's level of consciousness and physiological status; initial 15 minutes of intraservice time, patient age 5 years or older CPT copyright 2017 [employer] [place] [employer]. All rights reserved. The codes documented in this report are preliminary and upon editor publications review may be revised to meet current compliance requirements. Peter Horn DO 06/06/2021 11:51:46 AM This report has been signed electronically. Number of Addenda: 1 Note Initiated On: 06/06/2021 11:01 AM Addendum Number: 1 Addendum Date: 12/04/2021 6:12:56 AM MAC was used as sedation for this procedure. Peter Horn DO 12/04/2021 6:13:02 AM This report has been signed electronically.
--- NOTE | 2021-06-06 11:53 | OP.CCLET_ITS ---
12/04/2021 Merissa Choi [address] [place] [address] Re : Upper GI endoscopy procedure for Coby Kylewhit Dear Dr. Choi This procedure was performed on May. My impressions and recommendations are as follows: Impressions : - Normal esophagus. - Non-bleeding gastric ulcer with no stigmata of bleeding. Biopsied. - Normal second portion of the duodenum. Recommendations : - Discharge patient to home. - Resume previous diet. - Continue present medications. - Await pathology results. - Repeat upper endoscopy in 1 year for surveillance based on pathology results. - Return to GI office. My findings are described in the full procedure note, which is enclosed. If I can be of further assistance, please feel free to contact me at . Sincerely, Peter Horn, 06/06/2021 11:51:46 AM This report has been signed electronically.
--- NOTE | 2021-06-06 12:00 | OP.COLON_ITS ---
Patient Name: Coby Cook Procedure Date: 06/06/2021 11:21 AM Date of : 1985 Age: 35 Procedure: Colonoscopy Indications: Generalized abdominal pain, Clinically significant diarrhea of unexplained origin Providers: Peter Horn DO Medicines: See the Anesthesia note for documentation of the administered medications Patient Profile: This is a 35 year old female. Refer to note in patient chart for documentation of history and physical. Patient has symptoms of acute epigastric abdominal pain. Last Colonoscopy: none. The patient's first colonoscopy is today. Complications: No immediate complications. Procedure: Pre-Anesthesia Assessment: - Prior to the procedure, a History and Physical was performed, and patient medications and allergies were reviewed. The risks and benefits of the procedure and the sedation options and risks were discussed with the patient. All questions were answered and informed consent was obtained. Patient identification and proposed procedure were verified by the physician in the pre-procedure area. Mental Status Examination: alert and oriented. Airway Examination: normal oropharyngeal airway and neck mobility. Respiratory Examination: clear to auscultation. CV Examination: normal. Prophylactic Antibiotics: The patient does not require prophylactic antibiotics. Prior Anticoagulants: The patient has taken no previous anticoagulant or antiplatelet agents. ASA Grade Assessment: II - A patient with mild systemic disease. After reviewing the risks and benefits, the patient was deemed in satisfactory condition to undergo the procedure. The anesthesia plan was to use moderate sedation / analgesia (conscious sedation). Immediately prior to administration of medications, the patient was re-assessed for adequacy to receive sedatives. The heart rate, respiratory rate, oxygen saturations, blood pressure, adequacy of pulmonary ventilation, and response to care were monitored throughout the procedure. The physical status of the patient was re-assessed after the procedure. After I obtained informed consent, the scope was passed under direct vision. Throughout the procedure, the patient's blood pressure, pulse, and oxygen saturations were monitored continuously. The pediatric colonoscope was introduced through the anus and advanced to the terminal ileum. The colonoscopy was performed without difficulty. The patient tolerated the procedure well. The quality of the bowel preparation was good. Moderate Sedation: Moderate (conscious) sedation was administered by the endoscopy nurse and supervised by the endoscopist. The patient's oxygen saturation, heart rate, blood pressure and response to care were monitored. Total physician intraservice time was 15 minutes. Scope In: 11:24:31 AM Scope Out: 11:43:55 AM Total Procedure Duration Time 0 hours 19 minutes 24 seconds Findings: The perianal and digital rectal examinations were normal. An area of mildly congested mucosa was found in the recto-sigmoid colon, in the descending colon, in the ascending colon and in the cecum. Biopsies were taken with a cold forceps for histology. Verification of patient identification for the specimen was done. Estimated blood loss was minimal. A patchy area of the terminal ileum was congested. Biopsies were taken with a cold forceps for histology. Verification of patient identification for the specimen was done. Estimated blood loss was minimal. Impression: - Congested mucosa in the recto-sigmoid colon, in the descending colon, in the ascending colon and in the cecum. Biopsied. - Congested mucosa in the terminal ileum. Biopsied. Recommendation: - Discharge patient to home. - Resume previous diet. - Continue present medications. - Await pathology results. - Repeat colonoscopy in 5 years for surveillance based on pathology results. - Return to GI office. Procedure Code(s): --- Professional --- 58777, Colonoscopy, flexible; with biopsy, single or multiple 60480, 59, Moderate sedation services provided by the same physician or other qualified health care management specialist performing the diagnostic or therapeutic service that the sedation supports, requiring the presence of an independent trained observer to assist in the monitoring of the patient's level of consciousness and physiological status; initial 15 minutes of intraservice time, patient age 5 years or older CPT copyright 2017 [employer]. All rights reserved. The codes documented in this report are preliminary and upon regulatory submissions specialist review may be revised to meet current compliance requirements. Peter Horn DO 06/06/2021 11:59:37 AM This report has been signed electronically. Number of Addenda: 1 Note Initiated On: 06/06/2021 11:21 AM Addendum Number: 1 Addendum Date: 12/04/2021 6:13:14 AM MAC was used as sedation for this procedure. Peter Horn DO 12/04/2021 6:13:19 AM This report has been signed electronically.
--- NOTE | 2021-06-06 12:01 | OP.CCLET_ITS ---
12/04/2021 Merissa Choi [address] [place] [address] Re : Colonoscopy procedure for Coby Rodwhit Dear Dr. Choi This procedure was performed on May. My impressions and recommendations are as follows: Impressions : - Congested mucosa in the recto-sigmoid colon, in the descending colon, in the ascending colon and in the cecum. Biopsied. - Congested mucosa in the terminal ileum. Biopsied. Recommendations : - Discharge patient to home. - Resume previous diet. - Continue present medications. - Await pathology results. - Repeat colonoscopy in 5 years for surveillance based on pathology results. - Return to GI office. My findings are described in the full procedure note, which is enclosed. If I can be of further assistance, please feel free to contact me at . Sincerely, Peter Horn, 06/06/2021 11:59:37 AM This report has been signed electronically.
== END 2021-06-06 23:59 | disposition home or self-care (01) ==
LOC: EN 09:51 → AC 09:54
PROVIDERS: PCP Internal Medicine; Referring Provider Internal Medicine Gastroenterology; Visit Provider Internal Medicine Gastroenterology
PROC: 0DJD8ZZ Inspection of Lower Intestinal Tract, Via Natural or Artificial Opening Endoscopic (ICD-10-PCS; CPT 45378; principal; 2021-06-06 10:40)
DX: K25.9 Gastric ulcer, unspecified as acute or chronic, without hemorrhage or perforation (principal); F31.9 Bipolar disorder, unspecified; K63.89 Other specified diseases of intestine; R19.7 Diarrhea, unspecified; R16.0 Hepatomegaly, not elsewhere classified; Z20.822 Contact with and (suspected) exposure to COVID-19; Z79.899 Other long term (current) drug therapy; Z87.891 Personal history of nicotine dependence
CPT/HCPCS: 45380; 43239; 87426; 88305; 88342; C9803; J7120; J2405

== ENCOUNTER 2022-04-17 10:52 | Emergency (ER) | payer MEDICAID, SELFPAY ==
[2022-04-17 10:53] VITALS: BP 115/85; PULSE 70; RESP 17; TEMP 35.9; O2SAT 100; BMI 43.5
--- NOTE | 2022-04-17 11:37 | ED.VIS.GI ---
HPI HPI - GI History of Present Illness Chief Complaint: Abd Pain Informant: patient Abdominal Pain/Flank Pain Onset: Today Context: Sudden Onset Timing: Continuous Quality: Sharp and Stabbing Location: Diffuse Worsened by: - (Sitting) Relieved by: - (Standing) Nausea/Vomiting/Emesis GI Symptom: Positive for Nausea; Negative for Vomiting Diarrhea/Melena/Hematochezia GI Symptom: Negative for Diarrhea, Melena or Hematochezia Associated Symptoms Associated Symptoms: Negative for Dysuria, Frequency or Hematuria Narrative Narrative: Patient presents with abdominal pain that began today. Patient states it began rather suddenly while she was at work today. Patient states it has been constant. Patient states it feels similar to the pain she had when she had an ovarian cyst rupture. Patient states it is worse with sitting and better with standing. Patient describes her pain as sharp and stabbing. Patient states her pain is diffuse across her abdomen. Patient admits to nausea but denies any vomiting. Patient denies any diarrhea, melena, or hematochezia. Patient denies any urinary complaints. Patient denies any pain into her back. [facility] Medical History Anxiety Back pain Bipolar disorder Depression Enlarged liver Excessive bleeding Loss of consciousness Marijuana use Migraine headache Pneumonia PTSD (post-traumatic stress disorder) Seizures Shortness of breath on exertion Smoker Substance abuse Wears dentures Home Medications buprenorphine 8.6 mg-naloxone 2.1 mg sublingual tablet 1 tab PO DAILY recovery 03/10/19 [History Last Taken 03/16/19] gabapentin 800 mg tablet 800 mg PO TID nerve pain 03/10/19 [History Last Taken 06/06/21] dicyclomine 10 mg capsule 20 mg PO Q6H PRN abdominal discomfort #20 caps 03/21/21 [Rx Last Taken Unknown] hyoscyamine sulfate 0.125 mg tablet 0.125 mg PO BID-QID PRN dyspepsia #30 tabs 06/06/21 [Rx Last Taken Unknown] alprazolam 1 mg tablet 1 mg PO TID PRN anxiety #15 tabs 12/20/21 [Rx Last Taken Unknown] pantoprazole 40 mg tablet,delayed release 40 mg PO BID #60 tabs 12/20/21 [Rx Last Taken Unknown] sucralfate 100 mg/mL oral suspension 10 ml PO BID #1,000 mL 12/20/21 [Rx Last Taken Unknown] Allergy/AdvReac Type Severity Reaction Status Date / Time No Known Allergies Allergy Verified 04/17/22 10:52 Surgical History History of Hx laparoscopic cholecystectomy Hx of dilation and curettage Hx of hysterectomy Hx of shoulder surgery Social History Smoking Status: Current every day smoker tobacco type: cigarettes ROS ROS ED Constitutional Constitutional ED: Reports chills and subjective; Denies fever(s) Eyes Eyes: Denies blurry vision or change in vision ENT ENT ED: Denies rhinorrhea or sore throat Cardiovascular Cardiovascular: Denies chest pain or palpitations Respiratory/Chest Respiratory/Chest: Denies cough or dyspnea Gastrointestinal Gastrointestinal: Reports abdominal pain and nausea; Denies diarrhea, melena or vomiting Genitourinary Genitourinary ED: Denies dysuria or hematuria Musculoskeletal Musculoskeletal: Denies back pain or neck pain Integumentary Denies abscess or rash Neurologic Neurologic: Denies headache(s) or weakness Allergic/Immunologic Allergic/Immunologic ED: Denies mouth swelling or urticaria EXAM Physical Exam Const Vital Signs: 04/17/22 10:53 Temperature 96.7 F L Temperature Source Temporal Pulse Rate 70 Respiratory Rate 17 Blood Pressure 115/85 H Blood Pressure Mean 95 Pulse Ox 100 Oxygen Delivery Method Room Air Positive well nourished, well developed and obese General Appearance ED: well developed and NAD Nutritional Appearance: obese HEENT Reports moist mucous membranes Neck supple and no JVD Resp normal respiratory effort and clear to auscultation bilaterally Cardio regular rate, regular rhythm and no murmurs GI normal to inspection, nondistended, normoactive bowel sounds Palpation: soft and tender epigastric, LLQ, RLQ, LUQ, RUQ, periumbilical and suprapubic; Negative for guarding or rebound tenderness present Extremity normal to inspection General Extremety ED: Negative for edema or tenderness General Extremity: Negative for edema Neuro oriented x3, CN's II-XII intact bilaterally and no sensory deficits noted Sensorium / Orientation: alert Motor Exam: strength 5/5 throughout Psych mental status grossly normal Skin no rashes or lesions noted MDM MDM MDM Narrative Medical decision making narrative: Differential diagnosis includes ruptured ovarian cyst, ovarian torsion, bowel perforation, bowel obstruction, appendicitis, pancreatitis, urinary tract infection, pyelonephritis, renal lithiasis, and ureteral lithiasis. CT scan of the abdomen pelvis will be obtained to assess for renal and ureteral calculi, bowel obstruction, appendicitis, pancreatitis, perforation, and ovarian cyst. CBC will be obtained to assess for leukocytosis and anemia. Comprehensive metabolic profile will be obtained to assess for hepatic function, renal function, and electrolyte abnormality. Urinalysis will be obtained to assess for urinary tract infection and pyelonephritis. Lipase will be obtained to assess for pancreatitis. Lab Data Lab results narrative: CBC was reviewed and was within normal limits. Comprehensive metabolic profile was reviewed and was within normal limits. Lipase was reviewed and was normal. Urinalysis was reviewed and does not show any evidence of urinary tract infection or hematuria. Labs: Laboratory Results - last 24 hr 04/17/22 04/17/22 04/17/22 11:15 11:15 12:20 WBC 7.6 RBC 4.35 Hgb 13.0 Hct 39.5 MCV 90.8 MCH 29.9 MCHC 32.9 RDW Std Deviation 39.4 RDW Coeff of Lizette 11.9 Plt Count 228 MPV 10.3 Immature Gran % (Auto) 0.300 Neut % (Auto) 57.8 Lymph % (Auto) 33.2 [place] % (Auto) 6.5 Eos % (Auto) 1.8 Baso % (Auto) 0.4 Absolute Neuts (auto) 4.4 Absolute Lymphs (auto) 2.52 Nucleated RBC % 0 Sodium 141 Potassium 3.5 Chloride 105 Carbon Dioxide 30.0 Anion Gap 6 BUN 13 Creatinine 0.82 Estim Creat Clear Calc 70.19 Est GFR (MDRD) Af Amer 101 Est GFR (MDRD) Non-Af 83 BUN/Creatinine Ratio 15.9 Glucose 104 Calcium 8.8 Total Bilirubin 0.20 AST 12 L ALT 20 Alkaline Phosphatase 64 Total Protein 6.9 Albumin 3.5 Globulin 3.4 Albumin/Globulin Ratio 1.0 Lipase 65 L Urine Color Yellow Urine Clarity Clear Urine pH 6.0 Ur Specific [place] 1.020 Urine Protein 15 H Urine Glucose (UA) Normal Urine Ketones 5 H Urine Occult Blood 10 H Urine Nitrite Negative Urine Bilirubin Negative Urine Urobilinogen Normal Ur Leukocyte Esterase 25 H Urine RBC 0-5 SEEN Urine WBC 0-5 SEEN Ur Squamous Epith Cells 0-5 SEEN Urine Bacteria RARE Urine Mucus 1+ Radiography Diagnostic Testing: Clinical Impression(s) from Imaging Studies Abdomen/Pelvis CT 04/17/22 11:44 IMPRESSION: Status post cholecystectomy. Scattered sigmoid diverticula. Electronically Signed: Seferino Lemus MD at 13:17 EST , CT scan of the abdomen pelvis was obtained. On my independent interpretation, there is no evidence of bowel obstruction or perforation. There is no free air or free fluid. Radiologist also interpreted the CT scan and noted scattered sigmoid diverticula but no evidence of diverticulitis. There is no acute process noted. Treatment and Re-Evaluation Narrative: Patient was given IV fluids and Toradol. Patient was advised of her findings. Patient was still having some pain but states that is improved. Patient was given a note for work. Patient was instructed to follow-up with her primary care physician in 3 to 5 days. Patient was instructed return if worse in any way. Patient understood and was agreeable with the plan. All questions were answered. Discharge Plan Triage Chief Complaint: Abd Pain ED Provider: Sid Greer Dx/Rx/DC Orders Clinical Impression: Abdominal pain, Obesity Instructions: ED Abdominal Pain Unkn Cause Fem Prescriptions: No Action pantoprazole 40 mg tablet,delayed release (DR/EC) 40 mg PO BID Qty: 60 1RF sucralfate 100 mg/mL suspension 10 ml PO BID Qty: 1000 1RF alprazolam 1 mg tablet 1 mg PO TID PRN (Reason: anxiety) Qty: 15 0RF gabapentin 800 MG tablet 800 mg PO TID Label Comments: TAKE 1 TABLET BY MOUTH THREE TIMES DAILY buprenorphine-naloxone 1 EACH tablet, sublingual 1 tab PO DAILY Label Comments: DISSOLVE 1 (ONE) TABLET UNDER THE TONGUE EVERY DAY dicyclomine 10 MG capsule 20 mg PO Q6H PRN (Reason: abdominal discomfort) Qty: 20 0RF hyoscyamine sulfate 0.125 mg tablet 0.125 mg PO BID-QID PRN (Reason: dyspepsia) Qty: 30 0RF Stand Alone Forms: ED Work / School Excuse Primary Care Provider: Merissa Choi Referrals: Merissa Choi MD [Primary Care Provider] - 5-7 Days Disposition Disposition: Home, Self Care
--- NOTE | 2022-04-17 11:44 | CT_ITS ---
STUDY: CT ABDOMEN AND PELVIS WITHOUT CONTRAST REASON FOR EXAM: Female, 36 years old. Nausea and abdominal pain. RADIATION DOSAGE (If Supplied By Facility): CTDIvol = ( 22.59 ) mGy, DLP = ( 1106.16 ) mGycm TECHNIQUE: Transaxial images were obtained from the dome of the diaphragm to the symphysis pubis without oral contrast, and without intravenous contrast. Sagittal and coronal images were reconstructed. Individualized dose optimization techniques were used for this CT. COMPARISON: Comparison is made with prior study dated 03/10/2019. FINDINGS: The visualized lung bases are unremarkable. The visualized portions of the heart are within normal limits. Normal liver. The patient is status post cholecystectomy. Normal spleen. Normal pancreas. Normal bilateral adrenal glands. Normal right kidney. Normal left kidney. There is a small hiatal hernia. Normal small intestine. Moderate amount of fecal material is seen in the colon. The appendix is visualized and appears normal. There is scattered atherosclerotic calcification of the abdominal aorta, without a demonstrated aneurysm. Normal inferior vena cava. Normal retroperitoneum. Normal urinary bladder. There is absence of the uterus consistent with a prior hysterectomy. Normal abdominal wall. Disc space narrowing and degeneration at L5-S1 level. CT/Abdomen/Pelvis without Cont IMPRESSION: Status post cholecystectomy. Scattered sigmoid diverticula. Electronically Signed: Seferino Lemus MD at 13:17 EST ,
[2022-04-17 12:03] LABS: Absolute Lymphocyte Count 2.52 X10^3/uL (0.83-4.51); Absolute Neutrophil Count 4.4 X10^3/uL (2.0-7.7); Basophil# 0.03 X10^3/uL; Basophil% 0.4 % (0-1); Eosinophil# 0.14 X10^3/uL; Eosinophils% 1.8 % (0-5); Hematocrit 39.5 % (37-47); Lymphocyte # 2.52 X10^3/ul (0.83-4.51); Lymphocyte % 33.2 % (19-41); Mean Corp Hgb Conc 32.9 g/dL (32-36); Mean Corpuscular Hgb 29.9 pg (27.0-32.0); Mean Corpuscular Volume 90.8 fL (81-99); Mean Platelet Vol. 10.3 fl (6.2-12.0); Monocyte# 0.49 X10^3/uL; Monocyte% 6.5 % (0-10); NRBC Flagged by Analyzer 0 % (0-5); Neutrophil # 4.39 X10^3/uL (2.7-7.7); Neutrophil % 57.8 % (47-70); Platelet Count 228 K/mm3 (150-450); RBC Distribution Width CV 11.9 % (11.6-14.6); RBC Distribution Width SD 39.4 fl (35.1-43.9); Red Blood Count 4.35 M/mm3 (4.2-5.4); White Blood Count 7.6 K/mm3 (4.4-11.0)
[2022-04-17 12:18] LABS: AST(SGOT) 12 U/L (15-37); Alanine Aminotransfer ALT/SGPT 20 U/L (13-56); Albumin, Serum 3.5 g/dL (3.2-5.0); Alkaline Phosphatase 64 U/L (45-117); Anion Gap 6 (5-15); BUN 13 mg/dL (7-18); BUN/Creat Ratio 15.9 RATIO (10-20); Calcium,Total 8.8 mg/dL (8.5-10.1); Chloride 105 mmol/L (98-107); Creatinine, Serum 0.82 mg/dL (0.55-1.02); EST Glomerular Filtration Rate 83 mL/min (>60); Est Glom Filt Rate - Afr Amer 101 mL/min (>60); Estimated Creatinine Clearance 70.19 ml/min; Globulin 3.4 g/dL (2.2-4.2); Glucose 104 mg/dL (74-106); Lipase 65 U/L (73-393); Potassium 3.5 mmol/L (3.5-5.1); Protein, Total 6.9 g/dL (6.4-8.2); Sodium Level 141 mmol/L (136-145)
[2022-04-17 12:33] LABS: Color, Urine Yellow (Yellow); Glucose, Dipstick Normal (Normal); Ketone-Dipstick 5 mg/dl (Negative); Leukocyte Esterase-Dipstick 25 /ul (Negative); Nitrite-Dipstick Negative (Negative); Occult Blood-Urine 10 /ul (Negative); Protein-Dipstick 15 mg/dl (Negative); Urine Bilirubin Dipstick Negative (Negative); Urine Clarity Clear (Clear); Urine Urobilinogen Normal (Normal)
[2022-04-17] MEDS: Ketorolac 30 MG/ML Syringe IV (12:36)
[2022-04-17] MEDS: 0.9% Normal Saline 1,000 ML 1000 ML IV (12:37)
[2022-04-17 12:48] LABS: Bacteria RARE /hpf (None Seen); Mucous, Urine 1+ /hpf (<or=2+); Red Blood Cells-Urine 0-5 SEEN /hpf (0-5); Squamous Epithelial Cells - UA 0-5 SEEN /hpf (5-10); White Blood Cells 0-5 SEEN /hpf (0-5)
[2022-04-17 14:19] VITALS: BP 122/95; PULSE 79; RESP 16; O2SAT 96
== END 2022-04-17 14:21 | disposition home or self-care (01) ==
PROVIDERS: Emergency Provider Emergency Medicine; PCP Internal Medicine; Visit Provider Emergency Medicine
DX: R10.9 Unspecified abdominal pain (principal); E66.9 Obesity, unspecified; F17.210 Nicotine dependence, cigarettes, uncomplicated
CPT/HCPCS: 74176; 80053; 81001; 83690; 85025; 96374; 99283; J7030; A4216

== ENCOUNTER → 2024-09-12 | Outpatient (CLI) | payer MEDICAID, SELFPAY ==
[2024-09-12 15:38] LABS: Hematocrit 39.9 % (37-47); Hemoglobin 13.2 g/dL (12.0-15.0); Immature Granulocytes Count 0.030 X10^3/uL (0.0-0.0); Mean Corp Hgb Conc 33.1 g/dL (32-36); Mean Corpuscular Volume 92.4 fL (81-99); Mean Platelet Vol. 10.2 fl (6.2-12.0); NRBC Flagged by Analyzer 0 % (0-5); Platelet Count 184 K/mm3 (150-450); RBC Distribution Width CV 11.9 % (11.6-14.6); RBC Distribution Width SD 40.3 fl (35.1-43.9); Red Blood Count 4.32 M/mm3 (4.2-5.4); White Blood Count 8.7 K/mm3 (4.4-11.0)
[2024-09-12 16:23] LABS: Anion Gap 8 (5-15); BUN 14 mg/dL (4-19); BUN/Creat Ratio 15.2 RATIO (10-20); Calcium,Total 9.0 mg/dL (7.6-11.0); Carbon Dioxide 27.8 mmol/L (21.0-32.0); Chloride 104 mmol/L (98-108); Glucose 103 mg/dL (70-99); Potassium 4.2 mmol/L (3.3-5.1)
== END | disposition home or self-care (01) ==
LOC: LAB 14:56
PROVIDERS: PCP Internal Medicine; Referring Provider Podiatrist; Visit Provider Podiatrist
DX: G62.9 Polyneuropathy, unspecified (principal)
CPT/HCPCS: 36415; 80048; 83036; 85025